=== PATIENT | male | born 1950 | race Caucasian/White ===

== ENCOUNTER 2017-01-21 14:40 | Emergency (ER) | payer MEDICARE, OTHER ==
[2017-01-21] MEDS ORDERED: Sodium Chloride 0.9% 10 ML Syringe FLUSH PRN (15:37)
[2017-01-21] MEDS ORDERED: Ondansetron 4 MG/2 ML SDV IVPUSH ONE (15:39)
[2017-01-21] MEDS ORDERED: HYDROmorphone 1 MG/ML Syringe IVPUSH ONE (15:39)
[2017-01-21] MEDS ORDERED: Sodium Chloride 0.9% 1,000 ML IV SCH ×2 (15:45→18:00)
--- NOTE | 2017-01-21 16:14 | EDM.PDOC ---
ED HPI GENERAL MEDICAL PROBLEM - General Chief Complaint: Flank Pain Stated Complaint: L BACK PAIN Time Seen by Provider: 01/21/17 15:15 Source of Information: Reports: Patient History Limitations: Reports: No Limitations - History of Present Illness INITIAL COMMENTS - FREE TEXT/NARRATIVE: Patient presents today with complaints of acute left sided flank pain with radiation to left groin area. Onset: Today Left Flank Pain Score (Numeric/FACES): 3 - Related Data Allergies Allergy/AdvReac Type Severity Reaction Status Date / Time enteric coted med Allergy Swelling Uncoded 01/21/17 15:10 Home Meds: Home Meds Carvedilol [Coreg] 25 mg PO BID 02/06/15 [History] Hydrochlorothiazide 25 mg PO DAILY 02/06/15 [History] Levothyroxine 75 mcg PO ACBREAKFAST 02/06/15 [History] Lisinopril 20 mg PO BID 02/06/15 [History] Spironolactone [Aldactone] 12.5 mg PO BID 02/06/15 [History] Terazosin [Hytrin] 5 mg PO BEDTIME 02/06/15 [History] Aspirin 81 mg PO DAILY 01/21/17 [History] Past Medical History Other HEENT History: hypothyroidism Cardiovascular History: Reports: Other (See Below) Other Cardiovascular History: cardiomegaly Other Gastrointestinal History: small intestine puncture Endocrine/Metabolic History: Reports: Hypothyroidism Oncologic (Cancer) History: Reports: Prostate Other Dermatologic History: lymes disease, valley fever - Past Surgical History GI Surgical History: Reports: Cholecystectomy Male Surgical History: Reports: Renal Calculus Musculoskeletal Surgical History: Reports: Arthroscopic Knee, Shoulder Surgery Social & Family History - Tobacco Use Smoking Status *Q: Never Smoker Second Hand Smoke Exposure: No - Caffeine Use Caffeine Use: Reports: Coffee - Alcohol Use Days Per Week of Alcohol Use: 7 Number of Drinks Per Day: 1 Total Drinks Per Week: 7 - Recreational Drug Use Recreational Drug Use: No ED ROS GENERAL - Review of Systems Review Of Systems: See Below Constitutional: Denies: Fever, Chills, Malaise, Weakness, Diaphoresis HEENT: Reports: No Symptoms Respiratory: Denies: Shortness of Breath, Wheezing, Cough, Sputum Cardiovascular: Denies: Chest Pain, Blood Pressure Problem, Dyspnea on Exertion , Edema, Lightheadedness, Palpitations, Syncope Endocrine: Reports: No Symptoms GI/Abdominal: Reports: Nausea, Other (He complains of pain to left flank radiating to left groin. ). Denies: Black Stool, Bloody Stool, Constipation, Diarrhea, Decreased Appetite, Difficulty Swallowing, Distension, Hematemesis, Hematochezia, Vomiting : Reports: Flank Pain. Denies: Dysuria, Frequency, Hematuria, Incontinence, Urgency, Urinary Retention Musculoskeletal: Reports: No Symptoms Skin: Denies: Cyanosis, Jaundice, Pallor, Diaphoresis, Bruising, Pruritis, Rash , Erythema, Wound, Lesions Neurological: Reports: No Symptoms Psychiatric: Reports: No Symptoms Hematologic/Lymphatic: Reports: No Symptoms Immunologic: Reports: No Symptoms ED EXAM, RENAL/ - Physical Exam Exam: See Below Exam Limited By: No Limitations General Appearance: Alert, WD/WN, No Apparent Distress Eye Exam: Bilateral Eye: Normal Inspection, PERRL Ears: Normal External Exam, Normal Canal, Hearing Grossly Normal, Normal TMs Nose: Normal Inspection, Normal Mucosa, No Blood Throat/Mouth: Normal Inspection, Normal Lips, Normal Teeth, Normal Gums, Normal Oropharynx, Normal Voice, No Airway Compromise Head: Atraumatic, Normocephalic Neck: Normal Inspection, Supple, Non-Tender, Full Range of Motion Respiratory/Chest: No Respiratory Distress, Lungs Clear, Normal Breath Sounds, No Accessory Muscle Use, Chest Non-Tender Cardiovascular: Normal Peripheral Pulses, Regular Rate, Rhythm, No Edema, No Gallop, No Murmur, No Rub GI/Abdominal: Normal Bowel Sounds, Soft, Non-Tender, No Distention, No Mass Back Exam: Full Range of Motion, CVA Tenderness (L). No: CVA Tenderness (R), Decreased Range of Motion, Muscle Spasm, Paraspinal Tenderness, Vertebral Tenderness Extremities: Normal Inspection, Normal Range of Motion, Non-Tender, No Pedal Edema, Normal Capillary Refill Neurological: Alert, Oriented, CN II-XII Intact, Normal Cognition, Normal Gait, Normal Reflexes, No Motor/Sensory Deficits Psychiatric: Normal Affect, Normal Mood Skin Exam: Warm, Dry, Intact, Normal Color, No Rash Lymphatic: No Adenopathy Course - Vital Signs Last Recorded V/S: Last Vital Signs Temp 36.0 C 01/21/17 15:11 Pulse 54 L 01/21/17 18:04 Resp 16 01/21/17 18:04 BP 114/57 L 01/21/17 18:04 Pulse Ox 96 01/21/17 18:04 - Orders/Labs/Meds Orders: Active Orders 24 hr Category Date Time Status Kidney Stone Protocol [CT] Stat Exams 01/21/17 15:37 Taken Saline Lock Insert [OM.PC] Routine Oth 01/21/17 15:37 Ordered Labs: Laboratory Tests 01/21/17 01/21/17 01/21/17 Range/Units 15:48 15:48 17:55 WBC 4.9 (4.5-11.0) K/uL RBC 4.03 L (4.30-5.90) M/uL Hgb 12.5 (12.0-15.0) g/dL Hct 37.6 L (40.0-54.0) % MCV 93 (80-98) fL MCH 31 (27-31) pg MCHC 33 (32-36) % Plt Count 166 (150-400) K/uL Neut % (Auto) 69 H (36-66) % Lymph % (Auto) 16 L (24-44) % [place] % (Auto) 10 H (2-6) % Eos % (Auto) 5 H (2-4) % Baso % (Auto) 0 (0-1) % Sodium 141 (140-148) mmol/L Potassium 4.4 (3.6-5.2) mmol/L Chloride 104 (100-108) mmol/L Carbon Dioxide 28 (21-32) mmol/L Anion Gap 9.2 (5.0-14.0) mmol/L BUN 31 H (7-18) mg/dL Creatinine 1.4 H (0.8-1.3) mg/dL Est Cr Clr Drug Dosing 52.14 mL/min Estimated GFR (MDRD) 50 L (>60) Glucose 129 H (74-106) mg/dL Calcium 8.9 (8.5-10.1) mg/dL Total Bilirubin 0.4 (0.2-1.0) mg/dL AST 19 (15-37) U/L ALT 25 (12-78) U/L Alkaline Phosphatase 48 (46-116) U/L Total Protein 7.0 (6.4-8.2) g/dL Albumin 4.0 (3.4-5.0) g/dL Globulin 3.0 (2.3-3.5) g/dL Albumin/Globulin Ratio 1.3 (1.2-2.2) Urine Color Yellow Urine Appearance Clear Urine pH 5.0 (4.5-8.0) Ur Specific [place] 1.020 (1.008-1.030) Urine Protein Negative (NEGATIVE) mg/dL Urine Glucose (UA) Normal (NEGATIVE) mg/dL Urine Ketones Negative (NEGATIVE) mg/dL Urine Occult Blood Negative (NEGATIVE) Urine Nitrite Negative (NEGAITVE) Urine Bilirubin Negative (NEGATIVE) Urine Urobilinogen Normal (NORMAL) mg/dL Ur Leukocyte Esterase Negative (NEGATIVE) Urine RBC 0-5 (0-5) Urine WBC Not seen (0-5) Ur Epithelial Cells Rare Amorphous Sediment Not seen Urine Bacteria Rare Urine Mucus Not seen Meds: Medications Discontinued Medications Generic Name Dose Route Start Last Admin Trade Name Freq PRN Reason Stop Dose Admin Hydromorphone HCl 1 mg 01/21/17 15:39 01/21/17 15:49 Dilaudid IVPUSH 01/21/17 15:40 1 mg ONETIME ONE Administration Sodium Chloride 1,000 mls @ 500 mls/hr 01/21/17 15:45 01/21/17 15:53 Normal Saline IV 500 mls/hr ASDIRECTED CELINE Administration Sodium Chloride 1,000 mls @ 500 mls/hr 01/21/17 18:00 Normal Saline IV ASDIRECTED CELINE Ondansetron HCl 4 mg 01/21/17 15:39 01/21/17 15:49 Zofran IVPUSH 01/21/17 15:40 4 mg ONETIME ONE Administration Sodium Chloride 10 ml 01/21/17 15:37 01/21/17 15:52 Saline Flush FLUSH 10 ml ASDIRECTED PRN Administration Keep Vein Open - Re-Assessments/Exams Free Text/Narrative Re-Assessment/Exam: 01/21/17 16:13 Patient reports pain is now 2/10. 01/21/17 17:03 Patient resting, pain continues to be controlled at this time. CT report pending. Departure - Departure Time of Disposition: 18:31 Disposition: DC/Tfer W/I Hosp To Swing 61 Condition: fair Clinical Impression: Acute left flank pain - Discharge Information Instructions: Flank Pain, [id number] Referrals: Maritza Jeffers NP [Primary Care Provider] - Forms: ED Department Discharge Additional Instructions: The CT scan of your abdomen showed punctate bilateral renal calculi. No hydronephrosis or hydroureter. Normal urinary bladder. Keep yourself hydrated. You can take ibuprofen 800mg by mouth three times a day as needed for pain. You can also take hydrocodone as directed for pain. You can take ondansetron as directed for nausea. Follow up with your primary care provider for further care and management as well as referral to urology and/or stone clinic. Return at any time for worsening of symptoms or concerns. - My Orders Last 24 Hours: My Active Orders 01/21/17 15:37 Kidney Stone Protocol [CT] Stat Saline Lock Insert [OM.PC] Routine - Assessment/Plan Last 24 Hours: My Active Orders 01/21/17 15:37 Kidney Stone Protocol [CT] Stat Saline Lock Insert [OM.PC] Routine Assessment:: Left flank pain Punctate bilateral renal calculi. No hydronephrosis or hydroureter. Normal urinary bladder. Plan: The CT scan of abdomen showed punctate bilateral renal calculi. No hydronephrosis or hydroureter. Normal urinary bladder. Patient instructed to stay hydrated. He can take ibuprofen 800mg by mouth three times a day as needed for pain. He can also take hydrocodone as directed for pain. He can take ondansetron as directed for nausea. Follow up with primary care provider for further care and management as well as referral to urology and/or stone clinic. He was instructed to return at any time for worsening of symptoms or concerns.
[2017-01-21 18:05] VITALS: BP 114/57
== END 2017-01-21 18:48 | disposition swing bed (61) ==
LOC: JP.ED 14:40
DX: R10.9 Unspecified abdominal pain (principal); E03.9 Hypothyroidism, unspecified; Z85.46 Personal history of malignant neoplasm of prostate; Z90.49 Acquired absence of other specified parts of digestive tract; Z98.890 Other specified postprocedural states; Z87.442 Personal history of urinary calculi; Z79.82 Long term (current) use of aspirin; Z79.899 Other long term (current) drug therapy; Z88.8 Allergy status to other drugs, medicaments and biological substances
CPT/HCPCS: 36415; 74176; 80053; 81001; 85025; 96361; 96374; 96375; 99285; J1170; J2405; J7040; J7050; 99284

== ENCOUNTER 2020-06-24 07:23 | Emergency (ER) | payer MEDICARE, OTHER ==
[2020-06-24] MEDS ORDERED: Albuterol 8 GM Inhaler INH ONE ×2 (08:19→08:21)
--- NOTE | 2020-06-24 08:19 | EDM.PDOC ---
ED HPI GENERAL MEDICAL PROBLEM - General Chief Complaint: Respiratory Problem Stated Complaint: COUGHING Time Seen by Provider: 06/24/20 08:09 Source of Information: Reports: Patient History Limitations: Reports: No Limitations - History of Present Illness INITIAL COMMENTS - FREE TEXT/NARRATIVE: pt arrived sob and coughing. He has been more sob. This started in the nite. He worked outside yesterday and he had a good day. He also has diarrhea. He has not vomited. - Related Data Allergies Allergy/AdvReac Type Severity Reaction Status Date / Time enteric coted med Allergy Swelling Uncoded 01/21/17 15:10 Home Meds: Home Meds Carvedilol [Coreg] 25 mg PO BID 02/06/15 [History] Hydrochlorothiazide 12.5 mg PO DAILY 02/06/15 [History] Levothyroxine 75 mcg PO ACBREAKFAST 02/06/15 [History] Lisinopril 20 mg PO BID 02/06/15 [History] Spironolactone [Aldactone] 12.5 mg PO DAILY 02/06/15 [History] Aspirin 162 mg PO DAILY 01/21/17 [History] Past Medical History Other HEENT History: hypothyroidism Cardiovascular History: Reports: Other (See Below) Other Cardiovascular History: cardiomegaly Respiratory History: Reports: Asthma Other Gastrointestinal History: small intestine puncture after gall bladder removal Musculoskeletal History: Reports: Other (See Below) Other Musculoskeletal History: vincenzo schlatters diasesa. Endocrine/Metabolic History: Reports: Hypothyroidism Oncologic (Cancer) History: Reports: Prostate Other Dermatologic History: lymes disease, valley fever - Past Surgical History GI Surgical History: Reports: Cholecystectomy Male Surgical History: Reports: Prostatectomy, Renal Calculus Musculoskeletal Surgical History: Reports: Arthroscopic Knee, Shoulder Surgery Social & Family History - Family History Family Medical History: Noncontributory - Tobacco Use Tobacco Use Status *Q: Never Tobacco User Second Hand Smoke Exposure: No - Caffeine Use Caffeine Use: Reports: Coffee - Alcohol Use Date of Last Drink: 06/21/20 - Recreational Drug Use Recreational Drug Use: No ED ROS GENERAL - Review of Systems Review Of Systems: See Below Constitutional: Reports: Chills, Malaise, Weakness HEENT: Reports: No Symptoms, Other ( tight in the throat) Respiratory: Reports: Shortness of Breath, Wheezing Cardiovascular: Reports: No Symptoms Endocrine: Reports: No Symptoms GI/Abdominal: Reports: No Symptoms : Reports: No Symptoms Musculoskeletal: Reports: No Symptoms Skin: Reports: No Symptoms Neurological: Reports: No Symptoms ED EXAM, GENERAL - Physical Exam Exam: See Below Free Text/Narrative:: ptarrived with sob and wheezing. He was working in the yard yesterday. General Appearance: Alert, Anxious Course - Vital Signs Last Recorded V/S: Last Vital Signs Temp 37.8 C 06/24/20 08:51 Pulse 99 06/24/20 12:50 Resp 22 H 06/24/20 08:51 BP 119/55 L 06/24/20 12:50 Pulse Ox 95 06/24/20 12:50 - Orders/Labs/Meds Labs: Laboratory Tests 06/24/20 06/24/20 06/24/20 Range/Units 08:20 08:29 09:03 WBC 9.6 (4.5-11.0) K/uL RBC 4.35 (4.30-5.90) M/uL Hgb 12.9 (12.0-15.0) g/dL Hct 42.0 (40.0-54.0) % MCV 97 (80-98) fL MCH 30 (27-31) pg MCHC 31 L (32-36) % Plt Count 155 (150-400) K/uL Neut % (Auto) 92 H (36-66) % Lymph % (Auto) 4 L (24-44) % [place] % (Auto) 3 (2-6) % Eos % (Auto) 1 L (2-4) % Baso % (Auto) 0 (0-1) % D-Dimer, Quantitative (0.0-500.0) ng/mL Sodium 129 L (140-148) mmol/L Potassium 3.9 (3.6-5.2) mmol/L Chloride 100 (100-108) mmol/L Carbon Dioxide 25 (21-32) mmol/L Anion Gap 7.9 (5.0-14.0) mmol/L BUN 29 H (7-18) mg/dL Creatinine 1.6 H (0.8-1.3) mg/dL Est Cr Clr Drug Dosing 44.45 mL/min Estimated GFR (MDRD) 43 L (>60) Glucose 86 (74-106) mg/dL Calcium 8.8 (8.5-10.1) mg/dL Total Bilirubin 0.8 D (0.2-1.0) mg/dL AST 31 (15-37) U/L ALT 47 D (12-78) U/L Alkaline Phosphatase 40 L (46-116) U/L Total Protein 6.3 L (6.4-8.2) g/dL Albumin 3.4 (3.4-5.0) g/dL Globulin 2.9 (2.3-3.5) g/dL Albumin/Globulin Ratio 1.2 (1.2-2.2) Urine Color Yellow (YELLOW) Urine Appearance Clear (CLEAR) Urine pH 5.5 (5.0-8.0) Ur Specific [place] 1.025 (1.008-1.030) Urine Protein Negative (NEGATIVE) mg/dL Urine Glucose (UA) Negative (NEGATIVE) mg/dL Urine Ketones Negative (NEGATIVE) mg/dL Urine Occult Blood Trace-lysed H (NEGATIVE) Urine Nitrite Negative (NEGATIVE) Urine Bilirubin Negative (NEGATIVE) Urine Urobilinogen 0.2 (0.2-1.0) EU/dL Ur Leukocyte Esterase Negative (NEGATIVE) Urine RBC 0-5 (0-5) Urine WBC Not seen (0-5) Ur Epithelial Cells Not seen Amorphous Sediment Not seen Urine Bacteria Not seen Urine Mucus Not seen SARS-CoV-2 RNA (NOHEMY) (NEGATIVE) 06/24/20 06/24/20 Range/Units 09:35 09:54 WBC (4.5-11.0) K/uL RBC (4.30-5.90) M/uL Hgb (12.0-15.0) g/dL Hct (40.0-54.0) % MCV (80-98) fL MCH (27-31) pg MCHC (32-36) % Plt Count (150-400) K/uL Neut % (Auto) (36-66) % Lymph % (Auto) (24-44) % [place] % (Auto) (2-6) % Eos % (Auto) (2-4) % Baso % (Auto) (0-1) % D-Dimer, Quantitative 2826.15 H (0.0-500.0) ng/mL Sodium (140-148) mmol/L Potassium (3.6-5.2) mmol/L Chloride (100-108) mmol/L Carbon Dioxide (21-32) mmol/L Anion Gap (5.0-14.0) mmol/L BUN (7-18) mg/dL Creatinine (0.8-1.3) mg/dL Est Cr Clr Drug Dosing mL/min Estimated GFR (MDRD) (>60) Glucose (74-106) mg/dL Calcium (8.5-10.1) mg/dL Total Bilirubin (0.2-1.0) mg/dL AST (15-37) U/L ALT (12-78) U/L Alkaline Phosphatase (46-116) U/L Total Protein (6.4-8.2) g/dL Albumin (3.4-5.0) g/dL Globulin (2.3-3.5) g/dL Albumin/Globulin Ratio (1.2-2.2) Urine Color (YELLOW) Urine Appearance (CLEAR) Urine pH (5.0-8.0) Ur Specific [place] (1.008-1.030) Urine Protein (NEGATIVE) mg/dL Urine Glucose (UA) (NEGATIVE) mg/dL Urine Ketones (NEGATIVE) mg/dL Urine Occult Blood (NEGATIVE) Urine Nitrite (NEGATIVE) Urine Bilirubin (NEGATIVE) Urine Urobilinogen (0.2-1.0) EU/dL Ur Leukocyte Esterase (NEGATIVE) Urine RBC (0-5) Urine WBC (0-5) Ur Epithelial Cells Amorphous Sediment Urine Bacteria Urine Mucus SARS-CoV-2 RNA (NOHEMY) Negative (NEGATIVE) Meds: Medications Discontinued Medications Generic Name Dose Route Start Last Admin Trade Name Freq PRN Reason Stop Dose Admin Albuterol 2 gm 06/24/20 08:19 06/24/20 08:44 Ventolin Hfa INH 06/24/20 08:20 2 puff ONETIME ONE Administration Albuterol 2 gm 06/24/20 08:21 Ventolin Hfa INH 06/24/20 08:22 ONETIME ONE Sodium Chloride 1,000 mls @ 999 mls/hr 06/24/20 08:30 06/24/20 08:45 Normal Saline IV 999 mls/hr ASDIRECTED CELINE Administration Sodium Chloride 1,000 mls @ 999 mls/hr 06/24/20 11:15 06/24/20 11:15 Normal Saline IV 999 mls/hr ASDIRECTED CELINE Administration Sodium Chloride 95 mls @ 4 mls/sec 06/24/20 11:30 06/24/20 11:27 Normal Saline IV 4 mls/sec ASDIRECTED CELINE Administration Ceftriaxone Sodium 1 gm/ 50 mls @ 100 mls/hr 06/24/20 12:06 06/24/20 12:20 Sodium Chloride IV 06/24/20 12:35 100 mls/hr ONETIME ONE Administration Iopamidol 100 ml 06/24/20 11:18 06/24/20 11:29 Isovue-370 (76%) IV 06/24/20 11:19 100 ml . DIRECTED ONE Administration Methylprednisolone Sodium Succinate 125 mg 06/24/20 09:01 06/24/20 09:11 Solu-Medrol IVPUSH 06/24/20 09:02 125 mg ONETIME ONE Administration - Re-Assessments/Exams Free Text/Narrative Re-Assessment/Exam: 06/24/20 10:46 pt was found to be Covid neg. His chest xray is good with no infiltrate. His wbc was not elevated. He is raising some sputum out of his chest. His has great oxgenation at this point and is comfortable with his breathing. 06/24/20 12:04 Pt had a high ddmimer return, greater than 2000. A ngio of the chest was obtained per Dr Garza, fluids were run and a reduced dose of dye was used. He did not have clots but he was found to have a small infiltrate looking like a small pneumonia in the rt lower lung area. Departure - Departure Time of Disposition: 10:48 Disposition: Home, Self-Care 01 Condition: Fair Clinical Impression: Bronchospasm, SOB (shortness of breath), Right lower lobe pneumonia - Discharge Information Instructions: Bronchospasm, Adult, [id number] Referrals: PCP,None [Primary Care Provider] - Forms: ED Department Discharge Care Plan Goals: avoid alot of activity in the yard today, push fluids, albuterol inhaler 2 puffs tid for the next 2 days and then use prn. zithromax 500mg now and 250 daily for 5 days. appt with Micky Zurita in 5 days. Sepsis Event Note (ED) - Evaluation Sepsis Screening Result: No Definite Risk
[2020-06-24] MEDS ORDERED: Sodium Chloride 0.9% 1,000 ML IV SCH ×2 (08:30→11:15)
[2020-06-24] MEDS ORDERED: methylPREDNISolone Sodium Succinate 125 MG/2 ML SDV IVPUSH ONE (09:01)
--- NOTE | 2020-06-24 09:13 | CR ---
CHEST: 2 view CLINICAL HISTORY:SOB COMPARISON:2011 FINDINGS: The heart size, pulmonary vascularity and hilar structures are normal. No infiltrate effusion or pneumothorax is seen. There are atherosclerotic changes in the aorta. IMPRESSION: No acute cardiopulmonary process.
[2020-06-24] MEDS ORDERED: Iopamidol 755 Mg/ML 100 ML Bottle IV ONE (11:18)
--- NOTE | 2020-06-24 11:50 | CT ---
Ang Chest CLINICAL HISTORY: Chest pain, shortness of breath TECHNIQUE: Thin section axial contiguous tomographic sections were taken through the chest after bolus IV iodinated contrast administration. Coronal and sagittal images were reconstructed. Auto dosage reduction and iterative reconstruction techniques employed. FINDINGS: There is moderate infiltrate in the medial and posterior basal segments of the right lower lobe. No mediastinal mass or lymphadenopathy is seen. No definite intraluminal filling defects are identified in the pulmonary arteries. There is some mild irregularity in the pulmonary arteries as they enter the area of infiltrate in the medial right lower lobe. Aorta is free of aneurysm or dissection. IMPRESSION: Right lower lobe pneumonic infiltrate. Pulmonary infarct is not excluded but felt less likely No definite evidence of pulmonary emboli
[2020-06-24] MEDS ORDERED: cefTRIAXone 1 GM in Sodium Chloride 0.9% 50 ML IV ONE (12:06)
[2020-06-24 12:58] VITALS: BP 119/55; PULSE 99
== END 2020-06-24 13:01 | disposition home or self-care (01) ==
LOC: JP.ED 07:23
DX: J18.9 Pneumonia, unspecified organism (principal); J98.01 Acute bronchospasm; E03.9 Hypothyroidism, unspecified; Z20.828 Contact with and (suspected) exposure to other viral communicable diseases; Z88.8 Allergy status to other drugs, medicaments and biological substances; Z79.82 Long term (current) use of aspirin; Z79.899 Other long term (current) drug therapy
CPT/HCPCS: 36415; 71046; 71275; 80053; 81001; 85025; 85379; 94640; 96365; 96375; 99285; A9270; J0696; J2930; J7030; J7050; Q9967; U0002; 99284

== ENCOUNTER 2020-07-06 11:53 | Inpatient (IN) | payer MEDICARE, OTHER ==
[2020-07-06] MEDS ORDERED: Lactated Ringers 1,000 ML IV ONE (12:44)
[2020-07-06] MEDS ORDERED: Acetaminophen 500 MG Tab PO ONE (12:47)
--- NOTE | 2020-07-06 12:52 | EDM.PDOC ---
ED HPI GENERAL MEDICAL PROBLEM - General Chief Complaint: Respiratory Problem Stated Complaint: FROM CLINIC SHORTNESS OF BREATH Time Seen by Provider: 07/06/20 12:35 Source of Information: Reports: Patient, Old Records, RN History Limitations: Reports: No Limitations - History of Present Illness INITIAL COMMENTS - FREE TEXT/NARRATIVE: 70 yo male was seen here on 06/24 and was found to have an early pneumonia. He was given a Z-pack and states that he never improved and in fact has gradually worsened since its onset. Has some transient relief with albuterol. Is running a fever. Was Covid negative on 06/24/2020. Has a pHx of DVT's. 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: Other (see below) (See HPI) - Related Data Allergies Allergy/AdvReac Type Severity Reaction Status Date / Time enteric coted med Allergy Swelling Uncoded 07/06/20 12:46 Home Meds: Home Meds Carvedilol [Coreg] 25 mg PO BID 02/06/15 [History] Hydrochlorothiazide 12.5 mg PO DAILY 02/06/15 [History] Levothyroxine 75 mcg PO ACBREAKFAST 02/06/15 [History] Lisinopril 20 mg PO BID 02/06/15 [History] Spironolactone [Aldactone] 12.5 mg PO DAILY 02/06/15 [History] Aspirin 162 mg PO DAILY 01/21/17 [History] Albuterol [Ventolin HFA] 1 puff INH ASDIRECTED 07/06/20 [History] Past Medical History Other HEENT History: hypothyroidism Cardiovascular History: Reports: Other (See Below) Other Cardiovascular History: cardiomegaly Respiratory History: Reports: Asthma Other Gastrointestinal History: small intestine puncture after gall bladder removal Musculoskeletal History: Reports: Other (See Below) Other Musculoskeletal History: vincenzo schlatters diasesa. Endocrine/Metabolic History: Reports: Hypothyroidism Oncologic (Cancer) History: Reports: Prostate Other Dermatologic History: lymes disease, valley fever - Past Surgical History GI Surgical History: Reports: Cholecystectomy Male Surgical History: Reports: Prostatectomy, Renal Calculus Musculoskeletal Surgical History: Reports: Arthroscopic Knee, Shoulder Surgery Social & Family History - Family History Family Medical History: No Pertinent Family History - Caffeine Use Caffeine Use: Reports: Coffee ED ROS GENERAL - Review of Systems Review Of Systems: See Below Constitutional: Reports: Fever, Chills, Malaise, Decreased Appetite HEENT: Reports: No Symptoms Respiratory: Reports: Shortness of Breath, Cough. Denies: Pleuritic Chest Pain, Hemoptysis Cardiovascular: Reports: No Symptoms Endocrine: Reports: No Symptoms GI/Abdominal: Reports: Anorexia : Reports: No Symptoms Musculoskeletal: Reports: No Symptoms Skin: Reports: No Symptoms Neurological: Reports: No Symptoms ED EXAM, GENERAL - Physical Exam Exam: See Below Exam Limited By: No Limitations General Appearance: Alert, WD/WN, Mild Distress Eye Exam: Bilateral Eye: Normal Inspection Ears: Normal External Exam, Normal Canal, Hearing Grossly Normal, Normal TMs Ear Exam: Bilateral Ear: Auricle Normal, Canal Normal, TM normal Nose: Normal Inspection, No Blood Throat/Mouth: Normal Lips, Normal Oropharynx, Normal Voice, No Airway Compromise, Other (slightly dry oral mucosa) Neck: Normal Inspection Respiratory/Chest: Rhonchi, Other (mild tachypnea) Cardiovascular: Regular Rate, Rhythm, No Edema, Tachycardia GI/Abdominal: Normal Bowel Sounds, Soft, Non-Tender, No Distention Extremities: Normal Range of Motion, Pedal Edema. No: Non-Tender, No Pedal Edema Neurological: Alert, Oriented, CN II-XII Intact, Normal Cognition, No Motor/Sensory Deficits Psychiatric: Normal Affect, Normal Mood Skin Exam: Warm, Dry, Intact, No Rash, Other (hemosiderin staining of both legs below the knees. ) Course - Vital Signs Text/Narrative:: Dr. Childers called @ 1530h Last Recorded V/S: Last Vital Signs Temp 37.1 C 07/06/20 15:22 Pulse 84 07/06/20 15:22 Resp 22 H 07/06/20 15:22 BP 97/45 L 07/06/20 15:22 Pulse Ox 97 07/06/20 15:22 - Orders/Labs/Meds Orders: Active Orders 24 hr Category Date Time Status Oxygen Therapy Adult [Oxygen Therapy, ED] [RC] Care 07/06/20 12:46 Active ASDIRECTED CULTURE BLOOD [BC] Stat Lab 07/06/20 12:50 Received CULTURE BLOOD [BC] Stat Lab 07/06/20 13:00 Received UA W/MICROSCOPIC [URIN] Stat Lab 07/06/20 12:45 Ordered Sodium Chloride 0.9% [Normal Saline] 100 ml Med 07/06/20 14:45 Active IV ASDIRECTED Medication Orders Sodium Chloride (Normal Saline) 100 mls @ 3.5 mls/sec IV ASDIRECTED CELINE Stop: 07/06/20 18:00 Last Admin: 07/06/20 15:06 Dose: 4 mls/sec Documented by: CARLA Labs: Laboratory Tests 07/06/20 07/06/20 07/06/20 Range/Units 12:31 13:00 13:03 WBC 9.2 (4.5-11.0) K/uL RBC 4.43 (4.30-5.90) M/uL Hgb 12.9 (12.0-15.0) g/dL Hct 41.3 (40.0-54.0) % MCV 93 (80-98) fL MCH 29 (27-31) pg MCHC 31 L (32-36) % Plt Count 201 (150-400) K/uL D-Dimer, Quantitative 1460.39 H (0.0-500.0) ng/mL Sodium (140-148) mmol/L Potassium (3.6-5.2) mmol/L Chloride (100-108) mmol/L Carbon Dioxide (21-32) mmol/L Anion Gap (5.0-14.0) mmol/L BUN (7-18) mg/dL Creatinine (0.8-1.3) mg/dL Est Cr Clr Drug Dosing mL/min Estimated GFR (MDRD) (>60) Glucose (74-106) mg/dL Lactic Acid (0.4-2.0) mmol/L Calcium (8.5-10.1) mg/dL Lactate Dehydrogenase 368 H (85-227) U/L SARS-CoV-2 RNA (NOHEMY) (NEGATIVE) 07/06/20 07/06/20 07/06/20 Range/Units 13:03 13:03 13:05 WBC (4.5-11.0) K/uL RBC (4.30-5.90) M/uL Hgb (12.0-15.0) g/dL Hct (40.0-54.0) % MCV (80-98) fL MCH (27-31) pg MCHC (32-36) % Plt Count (150-400) K/uL D-Dimer, Quantitative (0.0-500.0) ng/mL Sodium 130 L (140-148) mmol/L Potassium 5.0 (3.6-5.2) mmol/L Chloride 94 L (100-108) mmol/L Carbon Dioxide 26 (21-32) mmol/L Anion Gap 15.0 H (5.0-14.0) mmol/L BUN 28 H (7-18) mg/dL Creatinine 1.7 H (0.8-1.3) mg/dL Est Cr Clr Drug Dosing 41.83 mL/min Estimated GFR (MDRD) 40 L (>60) Glucose 102 (74-106) mg/dL Lactic Acid 1.4 (0.4-2.0) mmol/L Calcium 9.3 (8.5-10.1) mg/dL Lactate Dehydrogenase (85-227) U/L SARS-CoV-2 RNA (NOHEMY) Positive H (NEGATIVE) Meds: Medications Generic Name Dose Route Start Last Admin Trade Name Freq PRN Reason Stop Dose Admin Sodium Chloride 100 mls @ 3.5 mls/sec 07/06/20 14:45 07/06/20 15:06 Normal Saline IV 07/06/20 18:00 4 mls/sec ASDIRECTED CELINE Administration Discontinued Medications Generic Name Dose Route Start Last Admin Trade Name Freq PRN Reason Stop Dose Admin Acetaminophen 1,000 mg 07/06/20 12:47 07/06/20 13:34 Tylenol Extra Strength PO 07/06/20 12:48 1,000 mg ONETIME ONE Administration Lactated Ringer's 1,000 mls @ 1,000 mls/hr 07/06/20 12:44 07/06/20 13:32 Ringers, Lactated IV 07/06/20 13:43 1,000 mls/hr BOLUS ONE Administration Ceftriaxone Sodium 1 gm/ 50 mls @ 100 mls/hr 07/06/20 14:45 07/06/20 15:21 Sodium Chloride IV 07/06/20 15:14 100 mls/hr ONETIME ONE Administration Iopamidol 100 ml 07/06/20 14:45 07/06/20 15:06 Isovue-370 (76%) IV 07/06/20 14:46 100 ml . DIRECTED CELINE Administration Sodium Chloride 10 ml 07/06/20 14:43 07/06/20 15:06 Saline Flush FLUSH 07/06/20 14:44 10 ml ONETIME ONE Administration - Radiology Interpretation Free Text/Narrative:: CXR-bilateral pneumonia CTA chest-neg PE Departure - Departure Time of Disposition: 15:45 Disposition: Admitted As Inpatient 64 Condition: Fair Clinical Impression: Hypoxemia, COVID-19 Lower lobe pneumonia Qualifiers: Pneumonia type: due to unspecified organism Laterality: bilateral Qualified Code(s): J18.9 - Pneumonia, unspecified organism - Discharge Information Referrals: PCP,None [Primary Care Provider] - Forms: ED Department Discharge Sepsis Event Note (ED) - Evaluation Sepsis Screening Result: Possible Sepsis Risk - Focused Exam Vital Signs: Vital Signs Temp Pulse Resp BP Pulse Ox Pulse Ox 07/06/20 15:22 37.1 C 84 22 H 97/45 L 97 07/06/20 14:37 38.1 C 92 26 H 125/63 94 L 07/06/20 12:49 95 07/06/20 12:43 38.6 C H 82 30 H 126/64 88 L - My Orders Last 24 Hours: My Active Orders 07/06/20 12:45 UA W/MICROSCOPIC [URIN] Stat 07/06/20 12:46 Oxygen Therapy Adult [Oxygen Therapy, ED] [] ASDIRECTED 07/06/20 12:50 CULTURE BLOOD [BC] Stat 07/06/20 13:00 CULTURE BLOOD [BC] Stat 07/06/20 14:45 Sodium Chloride 0.9% [Normal Saline] 100 ml IV ASDIRECTED - Assessment/Plan Last 24 Hours: My Active Orders 07/06/20 12:45 UA W/MICROSCOPIC [URIN] Stat 07/06/20 12:46 Oxygen Therapy Adult [Oxygen Therapy, ED] [] ASDIRECTED 07/06/20 12:50 CULTURE BLOOD [BC] Stat 07/06/20 13:00 CULTURE BLOOD [BC] Stat 07/06/20 14:45 Sodium Chloride 0.9% [Normal Saline] 100 ml IV ASDIRECTED
--- NOTE | 2020-07-06 14:00 | CR ---
CHEST: 2 view CLINICAL HISTORY:Fever, cough, shortness of breath COMPARISON:06/24/2020 FINDINGS: There is been interval development of bilateral pulmonary infiltrates most notable in the right upper lobe. Heart size and pulmonary vascularity are normal. There are atherosclerotic changes in the aorta.. There are no effusions. Impression: Interval development of bilateral pneumonic infiltrates.
[2020-07-06] MEDS ORDERED: cefTRIAXone 1 GM in Sodium Chloride 0.9% 50 ML IV ONE ×2 (14:30→14:45)
[2020-07-06] MEDS ORDERED: Sodium Chloride 0.9% 10 ML Syringe FLUSH ONE (14:43)
[2020-07-06] MEDS ORDERED: Sodium Chloride 0.9% 100 ML IV SCH (14:45)
[2020-07-06] MEDS ORDERED: Iopamidol 755 Mg/ML 100 ML Bottle IV SCH (14:45)
--- NOTE | 2020-07-06 15:09 | CT ---
Ang Chest CLINICAL HISTORY: Elevated d-dimer, SOB, covid Positive TECHNIQUE: Thin section axial contiguous tomographic sections were taken through the chest after bolus IV iodinated contrast administration. Coronal and sagittal images were reconstructed. Auto dosage reduction and iterative reconstruction techniques employed. FINDINGS: There is patchy diffuse bilateral groundglass opacification in both the upper and lower lung chakraborty. There is some atelectasis and or consolidation in the right the medial basal segment no pulmonary mass is identified. No pulmonary mass is identified. Pulmonary arteries are free of filling defects. Aorta has some atheromatous change without aneurysm or dissection. No mediastinal mass or suspicious lymphadenopathy is identified. There are no pleural effusions. Scans in the upper abdomen show no mass or adenopathy. IMPRESSION: No evidence of pulmonary embolus Diffuse patchy bilateral groundglass opacifications suggesting pneumonitis. This would be consistent with the patient being Covid Positive.
[2020-07-06] MEDS ORDERED: Dexamethasone 2 MG Tab PO ONE (16:24)
--- NOTE | 2020-07-06 16:35 | PCM.HP.2 ---
H&P History of Present Illness - General Date of Service: 07/06/20 Admit Problem/Dx: Admission Diagnosis/Problem Admission Diagnosis/Problem Pneumonia Source of Information: Patient, Provider History Limitations: Reports: No Limitations - History of Present Illness Initial Comments - Free Text/Narative: CC: I just can't breathe HPI: Luis presents to the emergency room today with progressive cough, shortness of breath, weakness and fatigue. He has not felt well for the last 12 days. He was seen in the emergency room on June 24 and was diagnosed with right lower lung pneumonia and started on azithromycin. His Covid testing at that time was negative. Initially he started to feel better but then over the last 10 days or so his symptoms have slowly progressed. He reports mild intermittent headaches, off and on fevers at home as well as significant fatigue and anorexia. He has not been able to eat or drink much because of nausea and occasional vomiting. He feels short of breath with even minimal activity. He has paroxysms of coughing that take his breath away for several minutes. He does not report any chest pain or pleuritic chest pain. His cough seems to be worse at night when he lays down. He has tried some [id number] cough remedies without much improvement. His coughing and shortness of breath have steadily been getting worse over the past 4 days or so. He is not aware of any sick contacts and other than the trip to the emergency room 12 days ago has not really had any contact that he is aware of. His is not sick. He has not traveled. Work-up in the emergency room revealed fairly reassuring laboratory studies. COVID-19 testing was positive. The patient is hypoxic and requiring 2 L of supplemental oxygen. He is going to be admitted to the Covid unit for further management. - Related Data Allergies/Adverse Reactions: Allergies Allergy/AdvReac Type Severity Reaction Status Date / Time enteric coted med Allergy Swelling Uncoded 07/06/20 12:46 Home Medications: Home Meds Carvedilol [Coreg] 25 mg PO BID 02/06/15 [History] Hydrochlorothiazide 12.5 mg PO DAILY 02/06/15 [History] Levothyroxine 75 mcg PO ACBREAKFAST 02/06/15 [History] Lisinopril 20 mg PO BID 02/06/15 [History] Spironolactone [Aldactone] 12.5 mg PO DAILY 02/06/15 [History] Aspirin 162 mg PO DAILY 01/21/17 [History] Albuterol [Ventolin HFA] 1 puff INH ASDIRECTED 07/06/20 [History] Past Medical History Other HEENT History: hypothyroidism Cardiovascular History: Reports: Other (See Below) Other Cardiovascular History: cardiomegaly Respiratory History: Reports: Asthma Other Gastrointestinal History: small intestine puncture after gall bladder removal Musculoskeletal History: Reports: Other (See Below) Other Musculoskeletal History: vincenzo schlatters diasesa. Endocrine/Metabolic History: Reports: Hypothyroidism Oncologic (Cancer) History: Reports: Prostate Other Dermatologic History: lymes disease, valley fever - Past Surgical History GI Surgical History: Reports: Cholecystectomy Male Surgical History: Reports: Prostatectomy, Renal Calculus Musculoskeletal Surgical History: Reports: Arthroscopic Knee, Shoulder Surgery Social & Family History - Family History Family Medical History: No Pertinent Family History - Tobacco Use Tobacco Use Status *Q: Never Tobacco User - Caffeine Use Caffeine Use: Reports: Coffee - Alcohol Use Alcohol Use History: No - Recreational Drug Use Recreational Drug Use: No H&P Review of Systems - Review of Systems: Review Of Systems: See Below Free Text/Narrative: A complete 12 point review of systems was obtained. Pertinent positives and negatives are noted in the history of present illness. All other systems were reviewed and were negative except as noted. Exam - Exam Exam: See Below - Vital Signs Vital Signs: Last Vital Signs Temp 37.1 C 07/06/20 15:22 Pulse 84 07/06/20 15:22 Resp 22 H 07/06/20 15:22 BP 97/45 L 07/06/20 15:22 Pulse Ox 97 07/06/20 15:22 Weight: 124.738 kg - Exam Quality Assessment: Supplemental Oxygen General: Alert, Oriented, Cooperative. No: Mild Distress HEENT: Conjunctiva Clear. No: Mucosa Moist & New [place] (dry), Scleral Icterus Neck: Supple, Trachea Midline Lungs: Normal Respiratory Effort, Crackles (few right lung base) Cardiovascular: Regular Rate, Regular Rhythm. No: Systolic Murmur GI/Abdominal Exam: Normal Bowel Sounds, Soft, Non-Tender, No Distention Back Exam: Normal Inspection, Full Range of Motion Extremities: Pedal Edema (trace bilateral ankle edema). No: Increased Warmth Skin: Warm, Dry, Other (chronic venous stasis both lower legs from mid steel distally ) Neuro Extensive - Mental Status: Alert, Oriented x3, Nl Response to Commands Neuro Extensive - Motor, Sensory, Reflexes: No: Dysarthria, Abnormal Motor, Tremor Psychiatric: Alert, Normal Affect - Patient Data Lab Results Last 24 hrs: Laboratory Results - last 24 hr 07/06/20 07/06/20 07/06/20 Range/Units 12:31 13:00 13:03 WBC 9.2 (4.5-11.0) K/uL RBC 4.43 (4.30-5.90) M/uL Hgb 12.9 (12.0-15.0) g/dL Hct 41.3 (40.0-54.0) % MCV 93 (80-98) fL MCH 29 (27-31) pg MCHC 31 L (32-36) % Plt Count 201 (150-400) K/uL D-Dimer, Quantitative 1460.39 H (0.0-500.0) ng/mL Sodium (140-148) mmol/L Potassium (3.6-5.2) mmol/L Chloride (100-108) mmol/L Carbon Dioxide (21-32) mmol/L Anion Gap (5.0-14.0) mmol/L BUN (7-18) mg/dL Creatinine (0.8-1.3) mg/dL Est Cr Clr Drug Dosing mL/min Estimated GFR (MDRD) (>60) Glucose (74-106) mg/dL Lactic Acid (0.4-2.0) mmol/L Calcium (8.5-10.1) mg/dL Lactate Dehydrogenase 368 H (85-227) U/L SARS-CoV-2 RNA (NOHEMY) (NEGATIVE) 07/06/20 07/06/20 07/06/20 Range/Units 13:03 13:03 13:05 WBC (4.5-11.0) K/uL RBC (4.30-5.90) M/uL Hgb (12.0-15.0) g/dL Hct (40.0-54.0) % MCV (80-98) fL MCH (27-31) pg MCHC (32-36) % Plt Count (150-400) K/uL D-Dimer, Quantitative (0.0-500.0) ng/mL Sodium 130 L (140-148) mmol/L Potassium 5.0 (3.6-5.2) mmol/L Chloride 94 L (100-108) mmol/L Carbon Dioxide 26 (21-32) mmol/L Anion Gap 15.0 H (5.0-14.0) mmol/L BUN 28 H (7-18) mg/dL Creatinine 1.7 H (0.8-1.3) mg/dL Est Cr Clr Drug Dosing 41.83 mL/min Estimated GFR (MDRD) 40 L (>60) Glucose 102 (74-106) mg/dL Lactic Acid 1.4 (0.4-2.0) mmol/L Calcium 9.3 (8.5-10.1) mg/dL Lactate Dehydrogenase (85-227) U/L SARS-CoV-2 RNA (NOHEMY) Positive H (NEGATIVE) Result Diagrams: 07/06/20 13:03 07/06/20 13:03 Imaging Impressions Last 24 hrs: All of the images listed below were personally reviewed Chest [id number] very subtle right lower lung infiltrate. Heart size is normal. No large infiltrate, mass or effusion. CT scan of the chest with PE protocol-no evidence for pulmonary embolism. Patchy bilateral airspace disease that would be consistent with COVID-19 infection. No large infiltrate or effusion. Sepsis Event Note - Evaluation Sepsis Screening Result: Possible Sepsis Risk - Focused Exam Vital Signs: Vital Signs Temp Pulse Resp BP Pulse Ox Pulse Ox 07/06/20 15:22 37.1 C 84 22 H 97/45 L 97 07/06/20 14:37 38.1 C 92 26 H 125/63 94 L 07/06/20 12:49 95 07/06/20 12:43 38.6 C H 82 30 H 126/64 88 L *Q Meaningful Use (ADM) - VTE Risk Assess *Q Each Risk Factor Represents 1 Point: Obesity ( BMI > 25 kg/m2), Serious lung disease including pneumonia Total Score 1 Point Risk Factors: 2 Each Risk Factor Represents 2 Points: Age 60 - 74 Years Total Score 2 Point Risk Factors: 2 Each Risk Factor Represents 3 Points: History of DVT/PE Total Score 3 Point Risk Factors: 3 Each Risk Factor Represents 5 Points: None Total Score 5 Point Risk Factors: 0 Venous Thromboembolism Risk Factor Score *Q: 7 - Problem List (1) Pneumonia due to COVID-19 virus SNOMED Code(s): 260959329212156788 ICD Code: U07.1 - COVID-19; J12.89 - OTHER VIRAL PNEUMONIA Status: Acute Current Visit: Yes (2) Acute respiratory failure with hypoxia SNOMED Code(s): 20463170, 876178668 ICD Code: J96.01 - ACUTE RESPIRATORY FAILURE WITH HYPOXIA Status: Acute Current Visit: Yes (3) Hx pulmonary embolism SNOMED Code(s): 140814207 ICD Code: Z86.711 - PERSONAL HISTORY OF PULMONARY EMBOLISM Status: Chronic Current Visit: No (4) Asthma SNOMED Code(s): 266738422 ICD Code: J45.909 - UNSPECIFIED ASTHMA, UNCOMPLICATED Status: Chronic Current Visit: No Qualifiers: Asthma severity: mild Asthma persistence: intermittent Asthma compli cation type: uncomplicated Qualified Code(s): J45.20 - Mild intermittent asthma, uncomplicated (5) History of prostate cancer SNOMED Code(s): 511115344 ICD Code: Z85.46 - PERSONAL HISTORY OF MALIGNANT NEOPLASM OF PROSTATE Status: Chronic Current Visit: No Problem List Initiated/Reviewed/Updated: Yes Orders Last 24hrs: Active Orders 24 hr Category Date Time Status Patient Status Manage Transfer [TRANSFER] Routine ADT 07/06/20 16:25 Ordered Oxygen Therapy Adult [Oxygen Therapy, ED] [RC] Care 07/06/20 12:46 Active ASDIRECTED CULTURE BLOOD [BC] Stat Lab 07/06/20 12:50 Received CULTURE BLOOD [BC] Stat Lab 07/06/20 13:00 Received UA W/MICROSCOPIC [URIN] Stat Lab 07/06/20 12:45 Ordered Sodium Chloride 0.9% [Normal Saline] 100 ml Med 07/06/20 14:45 Active IV ASDIRECTED Resuscitation Status Routine Resus Stat 07/06/20 16:26 Ordered Medication Orders Sodium Chloride (Normal Saline) 100 mls @ 3.5 mls/sec IV ASDIRECTED CELINE Stop: 07/06/20 18:00 Last Admin: 07/06/20 15:06 Dose: 4 mls/sec Documented by: CARLA Assessment/Plan Comment:: ASSESSMENT AND PLAN - COVID-19 with bilateral pneumonia-complicated by acute respiratory failure with hypoxia. We did review treatments including dexamethasone, convalescent plasma and remdesivir. We did discuss that remdesivir is currently available under an emergency use authorization. Patient was agreeable to utilizing this medication after a discussion about the potential benefits versus risks. He is at a higher risk given his obesity, asthma and cancer history. -Supplement oxygen -Dexamethasone x5 to 10 days (start 07/06) -Convalescent plasma daily for 3 days -Remdesivir x5 days -Enoxaparin daily -Symptomatic management -Isolation precautions Mild intermittent asthma-no evidence for exacerbation at this time. This has been fairly well controlled. He has used an inhaler to help with shortness of breath but it has not provided any benefit. -Management as above History of PE-not currently anticoagulated. Hypertension-blood pressure acceptable. -Continue home meds History of prostate cancer- Maintenance issues - - DVT prophylaxis -enoxaparin - GI prophylaxis -not indicated - Nutrition -regular diet - Cole catheter -not indicated CODE STATUS -full code Admission justification -this patient will be admitted for inpatient services and is medically appropriate meeting medical necessity for inpatient admission as outlined in my documentation. I reasonably expect the patient will require inpatient services that span a period time over 2 midnights. I reasonably expect this patient to be discharged or transferred within 96 hours after admission to the [facility]. Disposition -I would anticipate discharge home after the hospital stay Primary care physician -no primary care at this time Smith Childers M.D. - Mortality Measure Prognosis:: Good
[2020-07-06] MEDS ORDERED: Magnesium Hydroxide 400 MG/5 ML Susp 30 ML Cup PO PRN (17:06)
[2020-07-06] MEDS ORDERED: Ondansetron 4 MG Tab.DIS PO PRN (17:06)
[2020-07-06] MEDS ORDERED: Acetaminophen 325 MG Tab PO PRN (17:06)
[2020-07-06] MEDS ORDERED: Ondansetron 4 MG/2 ML SDV IV PRN (17:06)
[2020-07-06] MEDS ORDERED: Benzonatate 100 MG Cap PO PRN (17:06)
[2020-07-06] MEDS ORDERED: Melatonin 3 MG Tab PO PRN (17:06)
[2020-07-06] MEDS ORDERED: guaiFENesin/Dextromethorphan 100-10 MG/5 ML Soln 10 ML Cup PO PRN (17:06)
[2020-07-06] MEDS ORDERED: Promethazine 25 MG Tab PO PRN (17:06)
[2020-07-06] MEDS: Enoxaparin 40 MG/0.4 ML Syringe SUBCUT SCH (17:34)
[2020-07-06] MEDS ORDERED: REMDESIVIR 200 MG in Sodium Chloride 0.9% 250 ML IV ONE (18:00)
[2020-07-06] MEDS: Lisinopril 10 MG Tab PO SCH (20:48)
[2020-07-06] MEDS: Carvedilol 12.5 MG Tab PO SCH (20:48)
[2020-07-07] MEDS ORDERED: Non-Formulary Medication 1 Each (Levothyroxine [Levothyroxine] 75 MCG) PO SCH (07:30)
[2020-07-07] MEDS: Spironolactone 25 MG Tab PO SCH (08:32)
[2020-07-07] MEDS: Aspirin 81 MG Tab.Chew PO SCH (08:32)
[2020-07-07] MEDS: Levothyroxine 25 MCG, Levothyroxine 50 MCG PO SCH ×2 (08:33)
[2020-07-07] MEDS: Hydrochlorothiazide 12.5 MG Cap PO SCH (08:34)
[2020-07-07] MEDS: Carvedilol 12.5 MG Tab PO SCH ×2 (08:35→20:46)
[2020-07-07] MEDS: Lisinopril 10 MG Tab PO SCH (08:35)
--- NOTE | 2020-07-07 15:37 | PCM.PN ---
- General Info Date of Service: 07/07/20 Subjective Update: No acute events overnight. Tolerating medication so far. Symptomatically he is feeling better with less shortness of breath and less cough. He is producing a small amount of clear sputum. No fevers overnight. No abdominal pain or nausea. No diarrhea. Aches and pains have improved. Overall he is doing better. Labs are stable. Functional Status: Reports: Pain Controlled, Tolerating Diet - Review of Systems General: Reports: Weakness. Denies: Fever Pulmonary: Reports: Shortness of Breath, Cough - Patient Data Vitals - Most Recent: Last Vital Signs Temp 36.1 C 07/07/20 10:48 Pulse 86 07/07/20 10:48 Resp 18 07/07/20 10:48 BP 93/49 L 07/07/20 10:48 Pulse Ox 92 L 07/07/20 13:34 Weight - Most Recent: 133.81 kg Lab Results Last 24 Hours: Laboratory Results - last 24 hr 07/06/20 07/06/20 07/07/20 Range/Units 17:14 19:55 05:10 WBC 2.9 L (4.5-11.0) K/uL RBC 3.65 L (4.30-5.90) M/uL Hgb 10.5 L D (12.0-15.0) g/dL Hct 34.3 L (40.0-54.0) % MCV 94 (80-98) fL MCH 29 (27-31) pg MCHC 31 L (32-36) % Plt Count 202 (150-400) K/uL Sodium (140-148) mmol/L Potassium (3.6-5.2) mmol/L Chloride (100-108) mmol/L Carbon Dioxide (21-32) mmol/L Anion Gap (5.0-14.0) mmol/L BUN (7-18) mg/dL Creatinine (0.8-1.3) mg/dL Est Cr Clr Drug Dosing mL/min Estimated GFR (MDRD) (>60) Glucose (74-106) mg/dL Calcium (8.5-10.1) mg/dL Total Bilirubin (0.2-1.0) mg/dL AST (15-37) U/L ALT (12-78) U/L Alkaline Phosphatase (46-116) U/L Total Protein (6.4-8.2) g/dL Albumin (3.4-5.0) g/dL Globulin (2.3-3.5) g/dL Albumin/Globulin Ratio (1.2-2.2) Urine Color Yellow (YELLOW) Urine Appearance Clear (CLEAR) Urine pH 5.0 (5.0-8.0) Ur Specific Mcgrew 1.015 (1.008-1.030) Urine Protein Trace H (NEGATIVE) mg/dL Urine Glucose (UA) Negative (NEGATIVE) mg/dL Urine Ketones Negative (NEGATIVE) mg/dL Urine Occult Blood Trace-intact H (NEGATIVE) Urine Nitrite Negative (NEGATIVE) Urine Bilirubin Negative (NEGATIVE) Urine Urobilinogen 0.2 (0.2-1.0) EU/dL Ur Leukocyte Esterase Negative (NEGATIVE) Urine RBC Not seen (0-5) Urine WBC Not seen (0-5) Ur Epithelial Cells Not seen Urine Bacteria Not seen Blood Type A POSITIVE 07/07/20 Range/Units 05:10 WBC (4.5-11.0) K/uL RBC (4.30-5.90) M/uL Hgb (12.0-15.0) g/dL Hct (40.0-54.0) % MCV (80-98) fL MCH (27-31) pg MCHC (32-36) % Plt Count (150-400) K/uL Sodium 134 L (140-148) mmol/L Potassium 5.0 (3.6-5.2) mmol/L Chloride 100 (100-108) mmol/L Carbon Dioxide 26 (21-32) mmol/L Anion Gap 13.0 (5.0-14.0) mmol/L BUN 27 H (7-18) mg/dL Creatinine 1.4 H (0.8-1.3) mg/dL Est Cr Clr Drug Dosing 49.25 mL/min Estimated GFR (MDRD) 50 L (>60) Glucose 144 H (74-106) mg/dL Calcium 8.6 (8.5-10.1) mg/dL Total Bilirubin 0.3 D (0.2-1.0) mg/dL AST 28 (15-37) U/L ALT 29 (12-78) U/L Alkaline Phosphatase 38 L (46-116) U/L Total Protein 6.4 (6.4-8.2) g/dL Albumin 2.4 L (3.4-5.0) g/dL Globulin 4.0 H (2.3-3.5) g/dL Albumin/Globulin Ratio 0.6 L (1.2-2.2) Urine Color (YELLOW) Urine Appearance (CLEAR) Urine pH (5.0-8.0) Ur Specific Mcgrew (1.008-1.030) Urine Protein (NEGATIVE) mg/dL Urine Glucose (UA) (NEGATIVE) mg/dL Urine Ketones (NEGATIVE) mg/dL Urine Occult Blood (NEGATIVE) Urine Nitrite (NEGATIVE) Urine Bilirubin (NEGATIVE) Urine Urobilinogen (0.2-1.0) EU/dL Ur Leukocyte Esterase (NEGATIVE) Urine RBC (0-5) Urine WBC (0-5) Ur Epithelial Cells Urine Bacteria Blood Type Adolph Results Last 24 Hours: Microbiology 07/06/20 12:50 Aerobic Blood Culture - Preliminary Blood - Venous - Iv Start NO GROWTH AFTER 1 DAY Anaerobic Blood Culture - Preliminary NO GROWTH AFTER 1 DAY 07/06/20 13:00 Aerobic Blood Culture - Preliminary Blood - Arm, Right NO GROWTH AFTER 1 DAY Anaerobic Blood Culture - Preliminary NO GROWTH AFTER 1 DAY Med Orders - Current: Current Medications Acetaminophen (Tylenol) 650 mg PO Q4H PRN PRN Reason: Pain (Mild 1-3)/fever Aspirin (Aspirin) 162 mg PO DAILY [facility] Last Admin: 07/07/20 08:32 Dose: 162 mg Documented by: Benzonatate (Tessalon Perles) 100 mg PO TID PRN PRN Reason: Cough Carvedilol (Coreg) 25 mg PO BID [facility] Last Admin: 07/07/20 08:35 Dose: 25 mg Documented by: Dexamethasone (Dexamethasone) 6 mg PO Q24H [facility] Enoxaparin Sodium (Lovenox) 40 mg SUBCUT Q24H [facility] Last Admin: 07/06/20 17:34 Dose: 40 mg Documented by: Guaifenesin/Dextromethorphan (Robitussin Dm) 10 ml PO Q4H PRN PRN Reason: Cough Hydrochlorothiazide (Hydrochlorothiazide) 12.5 mg PO DAILY [facility] Last Admin: 07/07/20 08:34 Dose: 12.5 mg Documented by: Remdesivir 100 mg/ Sodium (Chloride) 100 mls @ 100 mls/hr IV Q24H [facility] Stop: 07/10/20 17:59 Levothyroxine Sodium 25 mcg/ (Levothyroxine Sodium 50 mcg) 75 mcg PO ACBREAKFAST [facility] Last Admin: 07/07/20 08:33 Dose: 75 mcg Documented by: Lisinopril (Prinivil) 20 mg PO BID [facility] Magnesium Hydroxide (Milk Of Magnesia) 30 ml PO Q12H PRN PRN Reason: Constipation Melatonin (Melatonin) 9 mg PO BEDTIME PRN PRN Reason: Sleep Ondansetron HCl (Zofran) 4 mg IV Q6H PRN PRN Reason: Nausea/Vomiting Ondansetron HCl (Zofran Odt) 4 mg PO Q6H PRN PRN Reason: Nausea able to take PO Promethazine HCl (Phenergan) 25 mg PO Q6H PRN PRN Reason: Nausea able to take PO Senna/Docusate Sodium (Senna Plus) 1 tab PO BID PRN PRN Reason: Constipation Spironolactone (Aldactone) 12.5 mg PO DAILY [facility] Last Admin: 07/07/20 08:32 Dose: 12.5 mg Documented by: Discontinued Medications Acetaminophen (Tylenol Extra Strength) 1,000 mg PO ONETIME ONE Stop: 07/06/20 12:48 Last Admin: 07/06/20 13:34 Dose: 1,000 mg Documented by: Dexamethasone (Dexamethasone) 6 mg PO ONETIME ONE Stop: 07/06/20 16:25 Last Admin: 07/06/20 16:45 Dose: 6 mg Documented by: Lactated Ringer's (Ringers, Lactated) 1,000 mls @ 1,000 mls/hr IV BOLUS ONE Stop: 07/06/20 13:43 Last Admin: 07/06/20 13:32 Dose: 1,000 mls/hr Documented by: Ceftriaxone Sodium 1 gm/ (Sodium Chloride) 50 mls @ 100 mls/hr IV ONETIME ONE Stop: 07/06/20 15:14 Last Admin: 07/06/20 15:21 Dose: 100 mls/hr Documented by: Sodium Chloride (Normal Saline) 100 mls @ 3.5 mls/sec IV ASDIRECTED [facility] Stop: 07/06/20 18:00 Last Admin: 07/06/20 15:06 Dose: 4 mls/sec Documented by: Remdesivir 200 mg/ Sodium (Chloride) 250 mls @ 250 mls/hr IV ONETIME ONE Stop: 07/06/20 18:59 Last Admin: 07/06/20 17:33 Dose: 250 mls/hr Documented by: Iopamidol (Isovue-370 (76%)) 100 ml IV . DIRECTED [facility] Stop: 07/06/20 14:46 Last Admin: 07/06/20 15:06 Dose: 100 ml Documented by: Lisinopril (Prinivil) 20 mg PO BID [facility] Last Admin: 07/07/20 08:35 Dose: 20 mg Documented by: Sodium Chloride (Saline Flush) 10 ml FLUSH ONETIME ONE Stop: 07/06/20 14:44 Last Admin: 07/06/20 15:06 Dose: 10 ml Documented by: - Exam Quality Assessment: Supplemental Oxygen General: Alert, Oriented, Cooperative, No Acute Distress Lungs: Normal Respiratory Effort, Crackles (rare both bases) Cardiovascular: Regular Rate, Regular Rhythm GI/Abdominal Exam: Soft, No Distention Extremities: Pedal Edema (trace bilateral ankle edema ). No: Increased Warmth Skin: Warm, Dry Psy/Mental Status: Alert, Normal Affect Sepsis Event Note - Evaluation Sepsis Screening Result: No Definite Risk - Focused Exam Vital Signs: Vital Signs Temp Pulse Pulse Resp BP BP Pulse Ox 07/07/20 13:34 92 L 07/07/20 10:48 36.1 C 86 18 93/49 L 93 L 07/07/20 08:35 64 106/54 L 07/07/20 07:24 93 L 07/07/20 07:00 36.1 C 64 16 106/54 L 93 L - Problem List & Annotations (1) Pneumonia due to COVID-19 virus SNOMED Code(s): 508636172831982281 Code(s): U07.1 - COVID-19; J12.89 - OTHER VIRAL PNEUMONIA Status: Acute Current Visit: Yes (2) Acute respiratory failure with hypoxia SNOMED Code(s): 48551565, 388866895 Code(s): J96.01 - ACUTE RESPIRATORY FAILURE WITH HYPOXIA Status: Acute Current Visit: Yes (3) Hx pulmonary embolism SNOMED Code(s): 295530012 Code(s): Z86.711 - PERSONAL HISTORY OF PULMONARY EMBOLISM Status: Chronic Current Visit: No (4) Asthma SNOMED Code(s): 990520978 Code(s): J45.909 - UNSPECIFIED ASTHMA, UNCOMPLICATED Status: Chronic Current Visit: No Qualifiers: Asthma severity: mild Asthma persistence: intermittent Asthma complication type: uncomplicated Qualified Code(s): J45.20 - Mild intermittent asthma, uncomplicated (5) History of prostate cancer SNOMED Code(s): 866689310 Code(s): Z85.46 - PERSONAL HISTORY OF MALIGNANT NEOPLASM OF PROSTATE Status: Chronic Current Visit: No - Problem List Review Problem List Initiated/Reviewed/Updated: Yes - My Orders Last 24 Hours: My Active Orders 07/06/20 16:26 Resuscitation Status Routine 07/06/20 Dinner Regular Diet [DIET] 07/06/20 17:06 Acetaminophen [TylenoL] 650 mg PO Q4H PRN Benzonatate [Tessalon Perles] 100 mg PO TID PRN Dextromethorphan/guaiFENesin [Robitussin DM] 10 ml PO Q4H PRN Docusate Sodium/Sennosides [Senna Plus] 1 tab PO BID PRN Magnesium Hydroxide [Milk of Magnesia] 30 ml PO Q12H PRN Melatonin 9 mg PO BEDTIME PRN Ondansetron [Zofran ODT] 4 mg PO Q6H PRN Ondansetron [Zofran] 4 mg IV Q6H PRN Promethazine [Phenergan] 25 mg PO Q6H PRN 07/06/20 17:06 Patient Status [ADT] Routine Intake and Output [RC] QSHIFT Notify Provider Vital Signs [RC] ASDIRECTED Nurse Communication: Isolation [RC] ASDIRECTED Oxygen Therapy [RC] PRN Pulse Oximetry [RC] CONTINUOUS Up With Assistance [RC] ASDIRECTED VTE/DVT Education [RC] Per Unit Routine Verify Patient Consent Obtain [RC] ASDIRECTED Vital Signs [RC] Q4H Convert IV to Saline Lock [OM.PC] Routine Isolation [COMM] Routine Transfuse Fresh Frozen Plasma [COMM] Routine 07/06/20 17:14 ABO/RH TYPE [BBK] Routine FRESH FROZEN PLASMA [BBK] Routine PATIENT RETYPE [BBK] Routine 07/06/20 18:00 Enoxaparin [Lovenox] 40 mg SUBCUT Q24H 07/06/20 21:00 carvediloL [Coreg] 25 mg PO BID 07/07/20 07:30 Levothyroxine [Synthroid] 75 mcg PO ACBREAKFAST 07/07/20 09:00 Aspirin 162 mg PO DAILY Spironolactone [Aldactone] 12.5 mg PO DAILY hydroCHLOROthiazide 12.5 mg PO DAILY 07/07/20 15:34 Transfuse Fresh Frozen Plasma [COMM] Routine 07/07/20 17:00 Remdesivir (Eua) [Remdesivir (EUA)] 100 mg Sodium Chloride 0.9% [Normal Saline] 100 ml IV Q24H 07/07/20 18:00 dexAMETHasone 6 mg PO Q24H 07/07/20 21:00 lisinopriL [Prinivil] 20 mg PO BID 07/08/20 05:00 C-REACTIVE PROTEIN [CHEM] Timed CBC W/O DIFF,HEMOGRAM [HEME] Timed (1) COMPREHENSIVE METABOLIC PN,CMP [CHEM] Timed D-DIMER QUANTITATIVE [COAG] Timed - Plan Plan:: ASSESSMENT AND PLAN - COVID-19 with bilateral pneumonia-complicated by acute respiratory failure with hypoxia. Tolerating treatment so far. Clinically doing a little better today. No fevers. Vital signs are stable. -Supplement oxygen -Dexamethasone x5 to 10 days (start 07/06) -Convalescent plasma daily for 3 days (2 of 3) -Remdesivir x5 days (2 of 5) -Enoxaparin daily -Symptomatic management -Isolation precautions Mild intermittent asthma-no evidence for exacerbation at this time. -Management as above History of PE-not currently anticoagulated. Hypertension-blood pressure acceptable. -Continue home meds History of prostate cancer Maintenance issues - - DVT prophylaxis -enoxaparin - GI prophylaxis -not indicated - Nutrition -regular diet Disposition -I would anticipate discharge home after the hospital stay Smith Childers M.D.
[2020-07-07] MEDS: REMDESIVIR 100 MG in Sodium Chloride 0.9% 100 ML IV SCH (17:12)
[2020-07-07] MEDS: Enoxaparin 40 MG/0.4 ML Syringe SUBCUT SCH (17:13)
[2020-07-07] MEDS: Dexamethasone 2 MG Tab PO SCH (17:13)
[2020-07-07] MEDS: Lisinopril 20 MG Tab PO SCH (20:46)
[2020-07-08] MEDS: Lisinopril 20 MG Tab PO SCH ×2 (09:40→20:25)
[2020-07-08] MEDS: Carvedilol 12.5 MG Tab PO SCH ×2 (09:40→20:26)
[2020-07-08] MEDS: Spironolactone 25 MG Tab PO SCH (09:40)
[2020-07-08] MEDS: Hydrochlorothiazide 12.5 MG Cap PO SCH (09:40)
[2020-07-08] MEDS: Levothyroxine 25 MCG, Levothyroxine 50 MCG PO SCH ×2 (09:41)
[2020-07-08] MEDS: Aspirin 81 MG Tab.Chew PO SCH (09:41)
--- NOTE | 2020-07-08 13:33 | PCM.PN ---
- General Info Date of Service: 07/08/20 Subjective Update: No acute events overnight. Patient feels about the same today as yesterday. He is somewhat short of breath with activity but okay at rest. Oxygenation is declined only slightly from yesterday. Tolerating treatment for the Covid infection. No significant headache at this time. Inflammatory markers are slightly improved today. Functional Status: Reports: Pain Controlled, Tolerating Diet - Review of Systems General: Reports: Weakness. Denies: Fever Pulmonary: Reports: Shortness of Breath - Patient Data Vitals - Most Recent: Last Vital Signs Temp 35.9 C L 07/08/20 10:59 Pulse 71 07/08/20 10:59 Resp 18 07/08/20 10:59 BP 96/50 L 07/08/20 10:59 Pulse Ox 93 L 07/08/20 10:59 Weight - Most Recent: 133.81 kg I&O - Last 24 Hours: Intake & Output 07/07/20 07/08/20 07/08/20 22:59 06:59 14:59 Intake Total 360 Balance 360 Lab Results Last 24 Hours: Laboratory Results - last 24 hr 07/06/20 07/08/20 07/08/20 Range/Units 17:14 05:54 05:54 WBC 6.2 (4.5-11.0) K/uL RBC 3.85 L (4.30-5.90) M/uL Hgb 11.0 L (12.0-15.0) g/dL Hct 36.0 L (40.0-54.0) % MCV 94 (80-98) fL MCH 29 (27-31) pg MCHC 31 L (32-36) % Plt Count 247 (150-400) K/uL D-Dimer, Quantitative 1237.38 H (0.0-500.0) ng/mL Sodium (140-148) mmol/L Potassium (3.6-5.2) mmol/L Chloride (100-108) mmol/L Carbon Dioxide (21-32) mmol/L Anion Gap (5.0-14.0) mmol/L BUN (7-18) mg/dL Creatinine (0.8-1.3) mg/dL Est Cr Clr Drug Dosing mL/min Estimated GFR (MDRD) (>60) Glucose (74-106) mg/dL Calcium (8.5-10.1) mg/dL Total Bilirubin (0.2-1.0) mg/dL AST (15-37) U/L ALT (12-78) U/L Alkaline Phosphatase (46-116) U/L C-Reactive Protein (0.0-0.3) mg/dL Total Protein (6.4-8.2) g/dL Albumin (3.4-5.0) g/dL Globulin (2.3-3.5) g/dL Albumin/Globulin Ratio (1.2-2.2) Blood Type A POSITIVE 07/08/20 Range/Units 05:54 WBC (4.5-11.0) K/uL RBC (4.30-5.90) M/uL Hgb (12.0-15.0) g/dL Hct (40.0-54.0) % MCV (80-98) fL MCH (27-31) pg MCHC (32-36) % Plt Count (150-400) K/uL D-Dimer, Quantitative (0.0-500.0) ng/mL Sodium 136 L (140-148) mmol/L Potassium 5.2 (3.6-5.2) mmol/L Chloride 101 (100-108) mmol/L Carbon Dioxide 26 (21-32) mmol/L Anion Gap 14.2 H (5.0-14.0) mmol/L BUN 37 H (7-18) mg/dL Creatinine 1.3 (0.8-1.3) mg/dL Est Cr Clr Drug Dosing 53.16 mL/min Estimated GFR (MDRD) 54 L (>60) Glucose 144 H (74-106) mg/dL Calcium 8.7 (8.5-10.1) mg/dL Total Bilirubin 0.2 (0.2-1.0) mg/dL AST 28 (15-37) U/L ALT 31 (12-78) U/L Alkaline Phosphatase 39 L (46-116) U/L C-Reactive Protein 10.38 H (0.0-0.3) mg/dL Total Protein 6.6 (6.4-8.2) g/dL Albumin 2.6 L (3.4-5.0) g/dL Globulin 4.0 H (2.3-3.5) g/dL Albumin/Globulin Ratio 0.7 L (1.2-2.2) Blood Type Adolph Results Last 24 Hours: Microbiology 07/06/20 12:50 Aerobic Blood Culture - Preliminary Blood - Venous - Iv Start NO GROWTH AFTER 2 DAYS Anaerobic Blood Culture - Preliminary NO GROWTH AFTER 2 DAYS 07/06/20 13:00 Aerobic Blood Culture - Preliminary Blood - Arm, Right NO GROWTH AFTER 2 DAYS Anaerobic Blood Culture - Preliminary NO GROWTH AFTER 2 DAYS Med Orders - Current: Current Medications Acetaminophen (Tylenol) 650 mg PO Q4H PRN PRN Reason: Pain (Mild 1-3)/fever Aspirin (Aspirin) 162 mg PO DAILY [facility] Last Admin: 07/08/20 09:41 Dose: 162 mg Documented by: Benzonatate (Tessalon Perles) 100 mg PO TID PRN PRN Reason: Cough Carvedilol (Coreg) 25 mg PO BID [facility] Last Admin: 07/08/20 09:40 Dose: 25 mg Documented by: Dexamethasone (Dexamethasone) 6 mg PO Q24H [facility] Last Admin: 07/07/20 17:13 Dose: 6 mg Documented by: Enoxaparin Sodium (Lovenox) 40 mg SUBCUT Q24H [facility] Last Admin: 07/07/20 17:13 Dose: 40 mg Documented by: Guaifenesin/Dextromethorphan (Robitussin Dm) 10 ml PO Q4H PRN PRN Reason: Cough Hydrochlorothiazide (Hydrochlorothiazide) 12.5 mg PO DAILY [facility] Last Admin: 07/08/20 09:40 Dose: 12.5 mg Documented by: Remdesivir 100 mg/ Sodium (Chloride) 100 mls @ 100 mls/hr IV Q24H [facility] Stop: 07/10/20 17:59 Last Admin: 07/07/20 17:12 Dose: 100 mls/hr Documented by: Levothyroxine Sodium 25 mcg/ (Levothyroxine Sodium 50 mcg) 75 mcg PO ACBREAKFAST [facility] Last Admin: 07/08/20 09:41 Dose: 75 mcg Documented by: Lisinopril (Prinivil) 20 mg PO BID [facility] Last Admin: 07/08/20 09:40 Dose: 20 mg Documented by: Magnesium Hydroxide (Milk Of Magnesia) 30 ml PO Q12H PRN PRN Reason: Constipation Melatonin (Melatonin) 9 mg PO BEDTIME PRN PRN Reason: Sleep Ondansetron HCl (Zofran) 4 mg IV Q6H PRN PRN Reason: Nausea/Vomiting Ondansetron HCl (Zofran Odt) 4 mg PO Q6H PRN PRN Reason: Nausea able to take PO Promethazine HCl (Phenergan) 25 mg PO Q6H PRN PRN Reason: Nausea able to take PO Senna/Docusate Sodium (Senna Plus) 1 tab PO BID PRN PRN Reason: Constipation Spironolactone (Aldactone) 12.5 mg PO DAILY [facility] Last Admin: 07/08/20 09:40 Dose: 12.5 mg Documented by: Discontinued Medications Acetaminophen (Tylenol Extra Strength) 1,000 mg PO ONETIME ONE Stop: 07/06/20 12:48 Last Admin: 07/06/20 13:34 Dose: 1,000 mg Documented by: Dexamethasone (Dexamethasone) 6 mg PO ONETIME ONE Stop: 07/06/20 16:25 Last Admin: 07/06/20 16:45 Dose: 6 mg Documented by: Lactated Ringer's (Ringers, Lactated) 1,000 mls @ 1,000 mls/hr IV BOLUS ONE Stop: 07/06/20 13:43 Last Admin: 07/06/20 13:32 Dose: 1,000 mls/hr Documented by: Ceftriaxone Sodium 1 gm/ (Sodium Chloride) 50 mls @ 100 mls/hr IV ONETIME ONE Stop: 07/06/20 15:14 Last Admin: 07/06/20 15:21 Dose: 100 mls/hr Documented by: Sodium Chloride (Normal Saline) 100 mls @ 3.5 mls/sec IV ASDIRECTED [facility] Stop: 07/06/20 18:00 Last Admin: 07/06/20 15:06 Dose: 4 mls/sec Documented by: Remdesivir 200 mg/ Sodium (Chloride) 250 mls @ 250 mls/hr IV ONETIME ONE Stop: 07/06/20 18:59 Last Admin: 07/06/20 17:33 Dose: 250 mls/hr Documented by: Iopamidol (Isovue-370 (76%)) 100 ml IV . DIRECTED [facility] Stop: 07/06/20 14:46 Last Admin: 07/06/20 15:06 Dose: 100 ml Documented by: Lisinopril (Prinivil) 20 mg PO BID [facility] Last Admin: 07/07/20 08:35 Dose: 20 mg Documented by: Sodium Chloride (Saline Flush) 10 ml FLUSH ONETIME ONE Stop: 07/06/20 14:44 Last Admin: 07/06/20 15:06 Dose: 10 ml Documented by: - Exam Quality Assessment: Supplemental Oxygen General: Alert, Oriented, Cooperative, No Acute Distress Lungs: Normal Respiratory Effort, Crackles (few fine crackles both bases). No: Wheezing Cardiovascular: Regular Rate, Regular Rhythm GI/Abdominal Exam: Soft, No Distention Extremities: Pedal Edema. No: Increased Warmth Skin: Warm, Dry Psy/Mental Status: Alert, Normal Affect Sepsis Event Note - Evaluation Sepsis Screening Result: No Definite Risk - Focused Exam Vital Signs: Vital Signs Temp Pulse Pulse Resp BP BP Pulse Ox 07/08/20 10:59 35.9 C L 71 18 96/50 L 93 L 07/08/20 09:40 70 113/55 L 07/08/20 09:00 07/08/20 07:00 35.9 C L 70 20 113/55 L 93 L 07/08/20 02:18 35.9 C L 59 L 22 H 119/53 L 93 L Pulse Ox 07/08/20 10:59 07/08/20 09:40 07/08/20 09:00 91 L 07/08/20 07:00 07/08/20 02:18 - Problem List & Annotations (1) Pneumonia due to COVID-19 virus SNOMED Code(s): 025242878827846617 Code(s): U07.1 - COVID-19; J12.89 - OTHER VIRAL PNEUMONIA Status: Acute Current Visit: Yes (2) Acute respiratory failure with hypoxia SNOMED Code(s): 63968536, 675128505 Code(s): J96.01 - ACUTE RESPIRATORY FAILURE WITH HYPOXIA Status: Acute Current Visit: Yes (3) Hx pulmonary embolism SNOMED Code(s): 657221093 Code(s): Z86.711 - PERSONAL HISTORY OF PULMONARY EMBOLISM Status: Chronic Current Visit: No (4) Asthma SNOMED Code(s): 708126883 Code(s): J45.909 - UNSPECIFIED ASTHMA, UNCOMPLICATED Status: Chronic Current Visit: No Qualifiers: Asthma severity: mild Asthma persistence: intermittent Asthma complicati on type: uncomplicated Qualified Code(s): J45.20 - Mild intermittent asthma, uncomplicated (5) History of prostate cancer SNOMED Code(s): 454894109 Code(s): Z85.46 - PERSONAL HISTORY OF MALIGNANT NEOPLASM OF PROSTATE Status: Chronic Current Visit: No - Problem List Review Problem List Initiated/Reviewed/Updated: Yes - My Orders Last 24 Hours: My Active Orders 07/07/20 15:34 Transfuse Fresh Frozen Plasma [COMM] Routine 07/07/20 17:00 Remdesivir (Eua) [Remdesivir (EUA)] 100 mg Sodium Chloride 0.9% [Normal Saline] 100 ml IV Q24H 07/07/20 18:00 dexAMETHasone 6 mg PO Q24H 07/07/20 21:00 lisinopriL [Prinivil] 20 mg PO BID 07/08/20 17:00 Transfuse Fresh Frozen Plasma [COMM] Routine 07/09/20 05:00 COMPREHENSIVE METABOLIC PN,CMP [CHEM] Timed - Plan Plan:: ASSESSMENT AND PLAN - COVID-19 with bilateral pneumonia-complicated by acute respiratory failure with hypoxia. Tolerating treatment so far. Clinically stable so far. He has a slight increase in his supplemental oxygen requirements to 3 L today. -Supplement oxygen -Dexamethasone x5 to 10 days (start 07/06) -Convalescent plasma daily for 3 days (3 of 3) -Remdesivir x5 days (3 of 5) -Enoxaparin daily -Symptomatic management -Isolation precautions Mild intermittent asthma-no evidence for exacerbation at this time. -Management as above History of PE-not currently anticoagulated. Hypertension-blood pressure acceptable. -Continue home meds History of prostate cancer Maintenance issues - - DVT prophylaxis -enoxaparin - GI prophylaxis -not indicated - Nutrition -regular diet Disposition -I would anticipate discharge home after the hospital stay Smith Childers M.D.
[2020-07-08] MEDS: REMDESIVIR 100 MG in Sodium Chloride 0.9% 100 ML IV SCH (17:17)
[2020-07-08] MEDS: Enoxaparin 40 MG/0.4 ML Syringe SUBCUT SCH (17:18)
[2020-07-08] MEDS: Dexamethasone 2 MG Tab PO SCH (17:36)
[2020-07-09] MEDS: Levothyroxine 25 MCG, Levothyroxine 50 MCG PO SCH ×2 (08:13)
[2020-07-09] MEDS: Aspirin 81 MG Tab.Chew PO SCH (08:14)
[2020-07-09] MEDS: Spironolactone 25 MG Tab PO SCH (08:14)
[2020-07-09] MEDS: Lisinopril 20 MG Tab PO SCH ×2 (08:14→20:00)
[2020-07-09] MEDS: Hydrochlorothiazide 12.5 MG Cap PO SCH (08:14)
[2020-07-09] MEDS: Carvedilol 12.5 MG Tab PO SCH ×2 (08:14→20:00)
--- NOTE | 2020-07-09 13:04 | PCM.PN ---
- General Info Date of Service: 07/09/20 Subjective Update: No acute events overnight. Oxygenation is stable on 3 L. He had a little bit more difficulty with cough this morning but thinks his breathing is the same or maybe a little better than yesterday. No fevers. No headache or myalgias. Appetite is good. He does get winded with his walks to the bathroom but seems to be recovering faster today. Labs are stable. Functional Status: Reports: Pain Controlled, Tolerating Diet - Review of Systems General: Reports: Weakness. Denies: Fever Pulmonary: Reports: Shortness of Breath - Patient Data Vitals - Most Recent: Last Vital Signs Temp 36.8 C 07/09/20 07:15 Pulse 63 07/09/20 08:14 Resp 18 07/09/20 07:15 BP 138/66 07/09/20 08:14 Pulse Ox 94 L 07/09/20 07:27 Weight - Most Recent: 133.81 kg I&O - Last 24 Hours: Intake & Output 07/08/20 07/09/20 07/09/20 22:59 06:59 14:59 Intake Total 400 630 Balance 400 630 Lab Results Last 24 Hours: Laboratory Results - last 24 hr 07/06/20 07/09/20 Range/Units 17:14 04:10 Sodium 136 L (140-148) mmol/L Potassium 5.0 (3.6-5.2) mmol/L Chloride 101 (100-108) mmol/L Carbon Dioxide 26 (21-32) mmol/L Anion Gap 14.0 (5.0-14.0) mmol/L BUN 35 H (7-18) mg/dL Creatinine 1.2 (0.8-1.3) mg/dL Est Cr Clr Drug Dosing 57.59 mL/min Estimated GFR (MDRD) 60 (>60) Glucose 145 H (74-106) mg/dL Calcium 8.8 (8.5-10.1) mg/dL Total Bilirubin 0.2 (0.2-1.0) mg/dL AST 26 (15-37) U/L ALT 36 (12-78) U/L Alkaline Phosphatase 41 L (46-116) U/L Total Protein 6.6 (6.4-8.2) g/dL Albumin 2.7 L (3.4-5.0) g/dL Globulin 3.9 H (2.3-3.5) g/dL Albumin/Globulin Ratio 0.7 L (1.2-2.2) Blood Type A POSITIVE Adolph Results Last 24 Hours: Microbiology 07/06/20 13:00 Aerobic Blood Culture - Preliminary Blood - Arm, Right NO GROWTH AFTER 3 DAYS Anaerobic Blood Culture - Preliminary NO GROWTH AFTER 3 DAYS 07/06/20 12:50 Aerobic Blood Culture - Preliminary Blood - Venous - Iv Start NO GROWTH AFTER 3 DAYS Anaerobic Blood Culture - Preliminary NO GROWTH AFTER 3 DAYS Med Orders - Current: Current Medications Acetaminophen (Tylenol) 650 mg PO Q4H PRN PRN Reason: Pain (Mild 1-3)/fever Aspirin (Aspirin) 162 mg PO DAILY [facility] Last Admin: 07/09/20 08:14 Dose: 162 mg Documented by: Benzonatate (Tessalon Perles) 100 mg PO TID PRN PRN Reason: Cough Carvedilol (Coreg) 25 mg PO BID [facility] Last Admin: 07/09/20 08:14 Dose: 25 mg Documented by: Dexamethasone (Dexamethasone) 6 mg PO Q24H [facility] Last Admin: 07/08/20 17:36 Dose: 6 mg Documented by: Enoxaparin Sodium (Lovenox) 40 mg SUBCUT Q24H [facility] Last Admin: 07/08/20 17:18 Dose: 40 mg Documented by: Guaifenesin/Dextromethorphan (Robitussin Dm) 10 ml PO Q4H PRN PRN Reason: Cough Hydrochlorothiazide (Hydrochlorothiazide) 12.5 mg PO DAILY [facility] Last Admin: 07/09/20 08:14 Dose: 12.5 mg Documented by: Remdesivir 100 mg/ Sodium (Chloride) 100 mls @ 100 mls/hr IV Q24H [facility] Stop: 07/10/20 17:59 Last Admin: 07/08/20 17:17 Dose: 100 mls/hr Documented by: Levothyroxine Sodium 25 mcg/ (Levothyroxine Sodium 50 mcg) 75 mcg PO ACBREAKFAST [facility] Last Admin: 07/09/20 08:13 Dose: 75 mcg Documented by: Lisinopril (Prinivil) 20 mg PO BID [facility] Last Admin: 07/09/20 08:14 Dose: 20 mg Documented by: Magnesium Hydroxide (Milk Of Magnesia) 30 ml PO Q12H PRN PRN Reason: Constipation Melatonin (Melatonin) 9 mg PO BEDTIME PRN PRN Reason: Sleep Ondansetron HCl (Zofran) 4 mg IV Q6H PRN PRN Reason: Nausea/Vomiting Ondansetron HCl (Zofran Odt) 4 mg PO Q6H PRN PRN Reason: Nausea able to take PO Promethazine HCl (Phenergan) 25 mg PO Q6H PRN PRN Reason: Nausea able to take PO Senna/Docusate Sodium (Senna Plus) 1 tab PO BID PRN PRN Reason: Constipation Spironolactone (Aldactone) 12.5 mg PO DAILY [facility] Last Admin: 07/09/20 08:14 Dose: 12.5 mg Documented by: Discontinued Medications Acetaminophen (Tylenol Extra Strength) 1,000 mg PO ONETIME ONE Stop: 07/06/20 12:48 Last Admin: 07/06/20 13:34 Dose: 1,000 mg Documented by: Dexamethasone (Dexamethasone) 6 mg PO ONETIME ONE Stop: 07/06/20 16:25 Last Admin: 07/06/20 16:45 Dose: 6 mg Documented by: Lactated Ringer's (Ringers, Lactated) 1,000 mls @ 1,000 mls/hr IV BOLUS ONE Stop: 07/06/20 13:43 Last Admin: 07/06/20 13:32 Dose: 1,000 mls/hr Documented by: Ceftriaxone Sodium 1 gm/ (Sodium Chloride) 50 mls @ 100 mls/hr IV ONETIME ONE Stop: 07/06/20 15:14 Last Admin: 07/06/20 15:21 Dose: 100 mls/hr Documented by: Sodium Chloride (Normal Saline) 100 mls @ 3.5 mls/sec IV ASDIRECTED [facility] Stop: 07/06/20 18:00 Last Admin: 07/06/20 15:06 Dose: 4 mls/sec Documented by: Remdesivir 200 mg/ Sodium (Chloride) 250 mls @ 250 mls/hr IV ONETIME ONE Stop: 07/06/20 18:59 Last Admin: 07/06/20 17:33 Dose: 250 mls/hr Documented by: Iopamidol (Isovue-370 (76%)) 100 ml IV . DIRECTED [facility] Stop: 07/06/20 14:46 Last Admin: 07/06/20 15:06 Dose: 100 ml Documented by: Lisinopril (Prinivil) 20 mg PO BID [facility] Last Admin: 07/07/20 08:35 Dose: 20 mg Documented by: Sodium Chloride (Saline Flush) 10 ml FLUSH ONETIME ONE Stop: 07/06/20 14:44 Last Admin: 07/06/20 15:06 Dose: 10 ml Documented by: - Exam Quality Assessment: Supplemental Oxygen General: Alert, Oriented, Cooperative, No Acute Distress Lungs: Normal Respiratory Effort, Crackles (few fine crackles at the bases) Cardiovascular: Regular Rate, Regular Rhythm GI/Abdominal Exam: Soft, No Distention Extremities: No Pedal Edema. No: Increased Warmth Skin: Warm, Dry Psy/Mental Status: Alert, Normal Affect Sepsis Event Note - Evaluation Sepsis Screening Result: No Definite Risk - Focused Exam Vital Signs: Vital Signs Temp Pulse Pulse Resp BP BP Pulse Ox 07/09/20 08:14 63 138/66 07/09/20 07:27 94 L 07/09/20 07:15 36.8 C 63 18 138/66 93 L 07/09/20 02:35 36.8 C 64 18 125/62 95 - Problem List & Annotations (1) Pneumonia due to COVID-19 virus SNOMED Code(s): 485580286073373892 Code(s): U07.1 - COVID-19; J12.89 - OTHER VIRAL PNEUMONIA Status: Acute Current Visit: Yes (2) Acute respiratory failure with hypoxia SNOMED Code(s): 17436075, 008823602 Code(s): J96.01 - ACUTE RESPIRATORY FAILURE WITH HYPOXIA Status: Acute Current Visit: Yes (3) Hx pulmonary embolism SNOMED Code(s): 068513943 Code(s): Z86.711 - PERSONAL HISTORY OF PULMONARY EMBOLISM Status: Chronic Current Visit: No (4) Asthma SNOMED Code(s): 959647604 Code(s): J45.909 - UNSPECIFIED ASTHMA, UNCOMPLICATED Status: Chronic Current Visit: No Qualifiers: Asthma severity: mild Asthma persistence: intermittent Asthma complication type: uncomplicated Qualified Code(s): J45.20 - Mild intermittent asthma, uncomplicated (5) History of prostate cancer SNOMED Code(s): 303453032 Code(s): Z85.46 - PERSONAL HISTORY OF MALIGNANT NEOPLASM OF PROSTATE Status: Chronic Current Visit: No - Problem List Review Problem List Initiated/Reviewed/Updated: Yes - My Orders Last 24 Hours: My Active Orders 07/08/20 17:00 Transfuse Fresh Frozen Plasma [COMM] Routine 07/10/20 05:00 C-REACTIVE PROTEIN [CHEM] Timed CBC W/O DIFF,HEMOGRAM [HEME] Timed (1) COMPREHENSIVE METABOLIC PN,CMP [CHEM] Timed D-DIMER QUANTITATIVE [COAG] Timed - Plan Plan:: ASSESSMENT AND PLAN - COVID-19 with bilateral pneumonia-complicated by acute respiratory failure with hypoxia. Tolerating treatment so far. Clinically stable and overall doing fairly well other than his cough. Volume status is appropriate today. -Supplement oxygen -Dexamethasone x5 to 10 days (start 07/06) -Convalescent plasma daily for 3 days (complete) -Remdesivir x5 days (4 of 5) -Enoxaparin daily -Symptomatic management -Isolation precautions Mild intermittent asthma-no evidence for exacerbation at this time. -Management as above History of PE-not currently anticoagulated. Hypertension-blood pressure acceptable. -Continue home meds History of prostate cancer Maintenance issues - - DVT prophylaxis -enoxaparin - GI prophylaxis -not indicated - Nutrition -regular diet Disposition -I would anticipate discharge home after the hospital stay Smith Childers M.D.
[2020-07-09] MEDS: REMDESIVIR 100 MG in Sodium Chloride 0.9% 100 ML IV SCH (16:17)
[2020-07-09] MEDS: Dexamethasone 2 MG Tab PO SCH (17:34)
[2020-07-09] MEDS: Enoxaparin 40 MG/0.4 ML Syringe SUBCUT SCH (17:35)
[2020-07-10] MEDS: Hydrochlorothiazide 12.5 MG Cap PO SCH (08:20)
[2020-07-10] MEDS: Aspirin 81 MG Tab.Chew PO SCH (08:21)
[2020-07-10] MEDS: Carvedilol 12.5 MG Tab PO SCH ×2 (08:21→20:56)
[2020-07-10] MEDS: Levothyroxine 25 MCG, Levothyroxine 50 MCG PO SCH ×2 (08:21)
[2020-07-10] MEDS: Lisinopril 20 MG Tab PO SCH ×2 (08:21→20:57)
[2020-07-10] MEDS: Spironolactone 25 MG Tab PO SCH (08:21)
--- NOTE | 2020-07-10 11:51 | PCM.PN ---
- General Info Date of Service: 07/10/20 Subjective Update: No acute events overnight. Shortness of breath is better today. Cough is a little bit more loose. He is down to 2 L of oxygen. He has not had any fevers. He does get winded with more than minimal activity but this is a little better. He is recovering faster. Inflammatory markers have improved since admission. Appetite has been good. Tolerating dexamethasone, remdesivir and plasma treatment. Functional Status: Reports: Pain Controlled, Tolerating Diet - Review of Systems General: Denies: Fever Pulmonary: Reports: Shortness of Breath, Cough - Patient Data Vitals - Most Recent: Last Vital Signs Temp 36.8 C 07/10/20 10:38 Pulse 67 07/10/20 10:38 Resp 18 07/10/20 10:38 BP 107/56 L 07/10/20 10:38 Pulse Ox 96 07/10/20 10:38 Weight - Most Recent: 133.81 kg I&O - Last 24 Hours: Intake & Output 07/09/20 07/10/20 07/10/20 22:59 06:59 14:59 Intake Total 240 Balance 240 Lab Results Last 24 Hours: Laboratory Results - last 24 hr 07/10/20 07/10/20 07/10/20 Range/Units 04:10 04:10 04:10 WBC 5.2 (4.5-11.0) K/uL RBC 4.02 L (4.30-5.90) M/uL Hgb 11.8 L (12.0-15.0) g/dL Hct 37.3 L (40.0-54.0) % MCV 93 (80-98) fL MCH 29 (27-31) pg MCHC 32 (32-36) % Plt Count 310 (150-400) K/uL D-Dimer, Quantitative 675.44 H (0.0-500.0) ng/mL Sodium 135 L (140-148) mmol/L Potassium 5.0 (3.6-5.2) mmol/L Chloride 99 L (100-108) mmol/L Carbon Dioxide 24 (21-32) mmol/L Anion Gap 17.0 H (5.0-14.0) mmol/L BUN 31 H (7-18) mg/dL Creatinine 1.2 (0.8-1.3) mg/dL Est Cr Clr Drug Dosing 57.59 mL/min Estimated GFR (MDRD) 60 (>60) Glucose 152 H (74-106) mg/dL Calcium 8.9 (8.5-10.1) mg/dL Total Bilirubin 0.3 (0.2-1.0) mg/dL AST 24 (15-37) U/L ALT 33 (12-78) U/L Alkaline Phosphatase 42 L (46-116) U/L C-Reactive Protein 2.98 H (0.0-0.3) mg/dL Total Protein 6.6 (6.4-8.2) g/dL Albumin 2.8 L (3.4-5.0) g/dL Globulin 3.8 H (2.3-3.5) g/dL Albumin/Globulin Ratio 0.7 L (1.2-2.2) Adolph Results Last 24 Hours: Microbiology 07/06/20 13:00 Aerobic Blood Culture - Preliminary Blood - Arm, Right NO GROWTH AFTER 3 DAYS Anaerobic Blood Culture - Preliminary NO GROWTH AFTER 3 DAYS 07/06/20 12:50 Aerobic Blood Culture - Preliminary Blood - Venous - Iv Start NO GROWTH AFTER 3 DAYS Anaerobic Blood Culture - Preliminary NO GROWTH AFTER 3 DAYS Med Orders - Current: Current Medications Acetaminophen (Tylenol) 650 mg PO Q4H PRN PRN Reason: Pain (Mild 1-3)/fever Aspirin (Aspirin) 162 mg PO DAILY [facility] Last Admin: 07/10/20 08:21 Dose: 162 mg Documented by: Benzonatate (Tessalon Perles) 100 mg PO TID PRN PRN Reason: Cough Carvedilol (Coreg) 25 mg PO BID [facility] Last Admin: 07/10/20 08:21 Dose: 25 mg Documented by: Dexamethasone (Dexamethasone) 6 mg PO Q24H [facility] Last Admin: 07/09/20 17:34 Dose: 6 mg Documented by: Enoxaparin Sodium (Lovenox) 40 mg SUBCUT Q24H [facility] Last Admin: 07/09/20 17:35 Dose: 40 mg Documented by: Guaifenesin/Dextromethorphan (Robitussin Dm) 10 ml PO Q4H PRN PRN Reason: Cough Hydrochlorothiazide (Hydrochlorothiazide) 12.5 mg PO DAILY [facility] Last Admin: 07/10/20 08:20 Dose: 12.5 mg Documented by: Remdesivir 100 mg/ Sodium (Chloride) 100 mls @ 100 mls/hr IV Q24H [facility] Stop: 07/10/20 17:59 Last Admin: 07/09/20 16:17 Dose: 100 mls/hr Documented by: Levothyroxine Sodium 25 mcg/ (Levothyroxine Sodium 50 mcg) 75 mcg PO ACBREAKFAST [facility] Last Admin: 07/10/20 08:21 Dose: 75 mcg Documented by: Lisinopril (Prinivil) 20 mg PO BID [facility] Last Admin: 07/10/20 08:21 Dose: 20 mg Documented by: Magnesium Hydroxide (Milk Of Magnesia) 30 ml PO Q12H PRN PRN Reason: Constipation Melatonin (Melatonin) 9 mg PO BEDTIME PRN PRN Reason: Sleep Ondansetron HCl (Zofran) 4 mg IV Q6H PRN PRN Reason: Nausea/Vomiting Ondansetron HCl (Zofran Odt) 4 mg PO Q6H PRN PRN Reason: Nausea able to take PO Promethazine HCl (Phenergan) 25 mg PO Q6H PRN PRN Reason: Nausea able to take PO Senna/Docusate Sodium (Senna Plus) 1 tab PO BID PRN PRN Reason: Constipation Spironolactone (Aldactone) 12.5 mg PO DAILY [facility] Last Admin: 07/10/20 08:21 Dose: 12.5 mg Documented by: Discontinued Medications Acetaminophen (Tylenol Extra Strength) 1,000 mg PO ONETIME ONE Stop: 07/06/20 12:48 Last Admin: 07/06/20 13:34 Dose: 1,000 mg Documented by: Dexamethasone (Dexamethasone) 6 mg PO ONETIME ONE Stop: 07/06/20 16:25 Last Admin: 07/06/20 16:45 Dose: 6 mg Documented by: Lactated Ringer's (Ringers, Lactated) 1,000 mls @ 1,000 mls/hr IV BOLUS ONE Stop: 07/06/20 13:43 Last Admin: 07/06/20 13:32 Dose: 1,000 mls/hr Documented by: Ceftriaxone Sodium 1 gm/ (Sodium Chloride) 50 mls @ 100 mls/hr IV ONETIME ONE Stop: 07/06/20 15:14 Last Admin: 07/06/20 15:21 Dose: 100 mls/hr Documented by: Sodium Chloride (Normal Saline) 100 mls @ 3.5 mls/sec IV ASDIRECTED [facility] Stop: 07/06/20 18:00 Last Admin: 07/06/20 15:06 Dose: 4 mls/sec Documented by: Remdesivir 200 mg/ Sodium (Chloride) 250 mls @ 250 mls/hr IV ONETIME ONE Stop: 07/06/20 18:59 Last Admin: 07/06/20 17:33 Dose: 250 mls/hr Documented by: Iopamidol (Isovue-370 (76%)) 100 ml IV . DIRECTED [facility] Stop: 07/06/20 14:46 Last Admin: 07/06/20 15:06 Dose: 100 ml Documented by: Lisinopril (Prinivil) 20 mg PO BID [facility] Last Admin: 07/07/20 08:35 Dose: 20 mg Documented by: Sodium Chloride (Saline Flush) 10 ml FLUSH ONETIME ONE Stop: 07/06/20 14:44 Last Admin: 07/06/20 15:06 Dose: 10 ml Documented by: - Exam Quality Assessment: Supplemental Oxygen General: Alert, Oriented, Cooperative, No Acute Distress Lungs: Normal Respiratory Effort, Crackles (fine crackles both lower lungs) Cardiovascular: Regular Rate, Regular Rhythm GI/Abdominal Exam: Soft, No Distention Extremities: No Pedal Edema. No: Increased Warmth Skin: Warm, Dry Psy/Mental Status: Alert, Normal Affect Sepsis Event Note - Evaluation Sepsis Screening Result: No Definite Risk - Focused Exam Vital Signs: Vital Signs Temp Pulse Pulse Resp BP BP Pulse Ox 07/10/20 10:38 36.8 C 67 18 107/56 L 96 07/10/20 08:21 68 130/68 07/10/20 08:18 36.8 C 68 18 130/68 92 L 07/10/20 07:38 92 L 07/10/20 03:39 36.8 C 65 18 130/65 96 07/10/20 01:00 94 L - Problem List & Annotations (1) Pneumonia due to COVID-19 virus SNOMED Code(s): 957956837647488396 Code(s): U07.1 - COVID-19; J12.89 - OTHER VIRAL PNEUMONIA Status: Acute Current Visit: Yes (2) Acute respiratory failure with hypoxia SNOMED Code(s): 82802371, 798913449 Code(s): J96.01 - ACUTE RESPIRATORY FAILURE WITH HYPOXIA Status: Acute Current Visit: Yes (3) Hx pulmonary embolism SNOMED Code(s): 714403821 Code(s): Z86.711 - PERSONAL HISTORY OF PULMONARY EMBOLISM Status: Chronic Current Visit: No (4) Asthma SNOMED Code(s): 289156550 Code(s): J45.909 - UNSPECIFIED ASTHMA, UNCOMPLICATED Status: Chronic Current Visit: No Qualifiers: Asthma severity: mild Asthma persistence: intermittent Asthma complication type: uncomplicated Qualified Code(s): J45.20 - Mild intermittent asthma, uncomplicated (5) History of prostate cancer SNOMED Code(s): 098514772 Code(s): Z85.46 - PERSONAL HISTORY OF MALIGNANT NEOPLASM OF PROSTATE Status: Chronic Current Visit: No - Problem List Review Problem List Initiated/Reviewed/Updated: Yes - My Orders Last 24 Hours: My Active Orders 07/11/20 05:00 COMPREHENSIVE METABOLIC PN,CMP [CHEM] Timed - Plan Plan:: ASSESSMENT AND PLAN - COVID-19 with bilateral pneumonia-complicated by acute respiratory failure with hypoxia. Tolerating treatment so far. Clinically looking and feeling better. Down to 2 L of oxygen today. D-dimer and CRP have improved since admission. -Supplement oxygen -Dexamethasone x10 days (start 07/06) -Convalescent plasma daily for 3 days (complete) -Remdesivir x5 days (5 of 5) -Enoxaparin daily -Hepatic panel daily, D-dimer and CRP every other day -Symptomatic management -Isolation precautions Mild intermittent asthma-no evidence for exacerbation at this time. -Management as above History of PE-not currently anticoagulated. Hypertension-blood pressure acceptable. -Continue home meds History of prostate cancer Maintenance issues - - DVT prophylaxis -enoxaparin - GI prophylaxis -not indicated - Nutrition -regular diet Disposition -I would anticipate discharge home after the hospital stay mSith Childers M.D.
[2020-07-10] MEDS: REMDESIVIR 100 MG in Sodium Chloride 0.9% 100 ML IV SCH (16:25)
[2020-07-10] MEDS: Dexamethasone 2 MG Tab PO SCH (17:13)
[2020-07-10] MEDS: Enoxaparin 40 MG/0.4 ML Syringe SUBCUT SCH (17:13)
[2020-07-11] MEDS: Levothyroxine 25 MCG, Levothyroxine 50 MCG PO SCH ×2 (07:40)
[2020-07-11] MEDS: Spironolactone 25 MG Tab PO SCH (08:46)
[2020-07-11] MEDS: Carvedilol 12.5 MG Tab PO SCH ×2 (08:46→20:30)
[2020-07-11] MEDS: Aspirin 81 MG Tab.Chew PO SCH (08:46)
[2020-07-11] MEDS: Hydrochlorothiazide 12.5 MG Cap PO SCH (08:46)
[2020-07-11] MEDS: Lisinopril 20 MG Tab PO SCH ×2 (08:55→20:29)
[2020-07-11] MEDS ORDERED: Bacitracin Oint 28.35 GM Tube TOP PRN (10:57)
[2020-07-11] MEDS ORDERED: Bacitracin Oint 28.35 GM Tube TOP SCH (14:00)
[2020-07-11] MEDS: Enoxaparin 40 MG/0.4 ML Syringe SUBCUT SCH (17:09)
[2020-07-11] MEDS: Dexamethasone 2 MG Tab PO SCH (17:09)
--- NOTE | 2020-07-11 18:06 | PCM.PN ---
- General Info Date of Service: 07/11/20 Subjective Update: Mr. Borrego continued to show improvement over the last 24 hours with less shortness of breath and cough. Continues to require supplemental oxygen at 2 L/min via nasal cannula. Overall strength and energy level as well as appetite seem to be improving. Functional Status: Reports: Tolerating Diet, Ambulating, Urinating - Review of Systems General: Reports: Weakness, Fatigue. Denies: Fever, Chills Pulmonary: Reports: Shortness of Breath, Cough. Denies: Pleuritic Chest Pain, Sputum, Hemoptysis, Wheezing Cardiovascular: Reports: Dyspnea on Exertion. Denies: Chest Pain, Palpitations, Orthopnea, PND, Edema, Lightheadedness Gastrointestinal: Reports: No Symptoms - Patient Data Vitals - Most Recent: Last Vital Signs Temp 97.4 F 07/11/20 14:16 Pulse 67 07/11/20 14:16 Resp 18 07/11/20 14:16 BP 98/50 L 07/11/20 14:16 Pulse Ox 95 07/11/20 14:16 Weight - Most Recent: 295 lb 0.009 oz I&O - Last 24 Hours: Intake & Output 07/11/20 07/11/20 07/11/20 06:59 14:59 22:59 Intake Total 836 296 Balance 836 296 Lab Results Last 24 Hours: Laboratory Results - last 24 hr 07/11/20 Range/Units 05:00 Sodium 134 L (140-148) mmol/L Potassium 5.1 (3.6-5.2) mmol/L Chloride 99 L (100-108) mmol/L Carbon Dioxide 28 (21-32) mmol/L Anion Gap 12.1 (5.0-14.0) mmol/L BUN 38 H (7-18) mg/dL Creatinine 1.3 (0.8-1.3) mg/dL Est Cr Clr Drug Dosing 53.16 mL/min Estimated GFR (MDRD) 54 L (>60) Glucose 157 H (74-106) mg/dL Calcium 8.9 (8.5-10.1) mg/dL Total Bilirubin 0.3 (0.2-1.0) mg/dL AST 16 (15-37) U/L ALT 35 (12-78) U/L Alkaline Phosphatase 40 L (46-116) U/L Total Protein 6.4 (6.4-8.2) g/dL Albumin 2.7 L (3.4-5.0) g/dL Globulin 3.7 H (2.3-3.5) g/dL Albumin/Globulin Ratio 0.7 L (1.2-2.2) Adolph Results Last 24 Hours: Microbiology 07/06/20 12:50 Aerobic Blood Culture - Final Blood - Venous - Iv Start NO GROWTH AFTER 5 DAYS Anaerobic Blood Culture - Final NO GROWTH AFTER 5 DAYS 07/06/20 13:00 Aerobic Blood Culture - Final Blood - Arm, Right NO GROWTH AFTER 5 DAYS Anaerobic Blood Culture - Final NO GROWTH AFTER 5 DAYS Med Orders - Current: Current Medications Acetaminophen (Tylenol) 650 mg PO Q4H PRN PRN Reason: Pain (Mild 1-3)/fever Aspirin (Aspirin) 162 mg PO DAILY [facility] Last Admin: 07/11/20 08:46 Dose: 162 mg Documented by: Bacitracin (Bacitracin Oint) 0 gm TOP TID PRN PRN Reason: for arm abrasion Last Admin: 07/11/20 11:46 Dose: 1 applic Documented by: Benzonatate (Tessalon Perles) 100 mg PO TID PRN PRN Reason: Cough Carvedilol (Coreg) 25 mg PO BID [facility] Last Admin: 07/11/20 08:46 Dose: 25 mg Documented by: Dexamethasone (Dexamethasone) 6 mg PO Q24H [facility] Last Admin: 07/11/20 17:09 Dose: 6 mg Documented by: Enoxaparin Sodium (Lovenox) 40 mg SUBCUT Q24H [facility] Last Admin: 07/11/20 17:09 Dose: 40 mg Documented by: Guaifenesin/Dextromethorphan (Robitussin Dm) 10 ml PO Q4H PRN PRN Reason: Cough Hydrochlorothiazide (Hydrochlorothiazide) 12.5 mg PO DAILY [facility] Last Admin: 07/11/20 08:46 Dose: 12.5 mg Documented by: Levothyroxine Sodium 25 mcg/ (Levothyroxine Sodium 50 mcg) 75 mcg PO ACBREAKFAST [facility] Last Admin: 07/11/20 07:40 Dose: 75 mcg Documented by: Lisinopril (Prinivil) 20 mg PO BID [facility] Last Admin: 07/11/20 08:55 Dose: 20 mg Documented by: Magnesium Hydroxide (Milk Of Magnesia) 30 ml PO Q12H PRN PRN Reason: Constipation Melatonin (Melatonin) 9 mg PO BEDTIME PRN PRN Reason: Sleep Ondansetron HCl (Zofran) 4 mg IV Q6H PRN PRN Reason: Nausea/Vomiting Ondansetron HCl (Zofran Odt) 4 mg PO Q6H PRN PRN Reason: Nausea able to take PO Promethazine HCl (Phenergan) 25 mg PO Q6H PRN PRN Reason: Nausea able to take PO Senna/Docusate Sodium (Senna Plus) 1 tab PO BID PRN PRN Reason: Constipation Spironolactone (Aldactone) 12.5 mg PO DAILY [facility] Last Admin: 07/11/20 08:46 Dose: 12.5 mg Documented by: Discontinued Medications Acetaminophen (Tylenol Extra Strength) 1,000 mg PO ONETIME ONE Stop: 07/06/20 12:48 Last Admin: 07/06/20 13:34 Dose: 1,000 mg Documented by: Bacitracin (Bacitracin Oint) 1 gm TOP TID [facility] Dexamethasone (Dexamethasone) 6 mg PO ONETIME ONE Stop: 07/06/20 16:25 Last Admin: 07/06/20 16:45 Dose: 6 mg Documented by: Lactated Ringer's (Ringers, Lactated) 1,000 mls @ 1,000 mls/hr IV BOLUS ONE Stop: 07/06/20 13:43 Last Admin: 07/06/20 13:32 Dose: 1,000 mls/hr Documented by: Ceftriaxone Sodium 1 gm/ (Sodium Chloride) 50 mls @ 100 mls/hr IV ONETIME ONE Stop: 07/06/20 15:14 Last Admin: 07/06/20 15:21 Dose: 100 mls/hr Documented by: Sodium Chloride (Normal Saline) 100 mls @ 3.5 mls/sec IV ASDIRECTED [facility] Stop: 07/06/20 18:00 Last Admin: 07/06/20 15:06 Dose: 4 mls/sec Documented by: Remdesivir 200 mg/ Sodium (Chloride) 250 mls @ 250 mls/hr IV ONETIME ONE Stop: 07/06/20 18:59 Last Admin: 07/06/20 17:33 Dose: 250 mls/hr Documented by: Remdesivir 100 mg/ Sodium (Chloride) 100 mls @ 100 mls/hr IV Q24H [facility] Stop: 07/10/20 17:59 Last Admin: 07/10/20 16:25 Dose: 100 mls/hr Documented by: Iopamidol (Isovue-370 (76%)) 100 ml IV . DIRECTED [facility] Stop: 07/06/20 14:46 Last Admin: 07/06/20 15:06 Dose: 100 ml Documented by: Lisinopril (Prinivil) 20 mg PO BID [facility] Last Admin: 07/07/20 08:35 Dose: 20 mg Documented by: Sodium Chloride (Saline Flush) 10 ml FLUSH ONETIME ONE Stop: 07/06/20 14:44 Last Admin: 07/06/20 15:06 Dose: 10 ml Documented by: - Exam Quality Assessment: DVT Prophylaxis General: Alert, Oriented, Cooperative, Mild Distress Lungs: Normal Respiratory Effort, Rales. No: Crackles, Rhonchi, Wheezing Cardiovascular: Regular Rate, Regular Rhythm, No Murmurs GI/Abdominal Exam: Soft, Non-Tender, No Organomegaly, No Distention Extremities: Non-Tender, No Pedal Edema Sepsis Event Note - Evaluation Sepsis Screening Result: No Definite Risk - Focused Exam Vital Signs: Vital Signs Temp Pulse Pulse Resp BP BP Pulse Ox 07/11/20 14:16 97.4 F 67 18 98/50 L 95 07/11/20 12:28 93 L 07/11/20 10:41 97.2 F 62 18 105/49 L 98 07/11/20 08:55 136/68 07/11/20 08:46 69 136/68 07/11/20 07:14 96 07/11/20 07:00 97.4 F 57 L 18 136/68 95 - Problem List Review Problem List Initiated/Reviewed/Updated: Yes - My Orders Last 24 Hours: My Active Orders 07/11/20 10:57 Bacitracin [Bacitracin Oint] 0 gm TOP TID PRN 07/11/20 12:50 RT Evaluate for Home Oxygen [RC] Click to Edit 07/12/20 05:00 BASIC METABOLIC PANEL,BMP [CHEM] Timed - Plan Plan:: ASSESSMENT AND PLAN - COVID-19 with bilateral pneumonia-complicated by acute respiratory failure with hypoxia. Tolerating treatment so far. Clinically looking and feeling better. Down to 2 L of oxygen today. -Supplement oxygen -Dexamethasone x10 days (start 07/06) -Convalescent plasma daily for 3 days (complete) -Remdesivir x5 days, completed -Enoxaparin daily -Symptomatic management -Isolation precautions Mild intermittent asthma-no evidence for exacerbation at this time. -Management as above History of PE-not currently anticoagulated. Hypertension-blood pressure acceptable. -Continue home meds History of prostate cancer Maintenance issues - - DVT prophylaxis -enoxaparin - GI prophylaxis -not indicated - Nutrition -regular diet Disposition -I would anticipate discharge home after the hospital stay
[2020-07-12 07:59] VITALS: BP 121/60; PULSE 61
[2020-07-12] MEDS: Levothyroxine 25 MCG, Levothyroxine 50 MCG PO SCH ×2 (08:02)
[2020-07-12] MEDS: Aspirin 81 MG Tab.Chew PO SCH (08:03)
[2020-07-12] MEDS: Lisinopril 20 MG Tab PO SCH (08:03)
[2020-07-12] MEDS: Carvedilol 12.5 MG Tab PO SCH (08:03)
[2020-07-12] MEDS: Spironolactone 25 MG Tab PO SCH (08:03)
[2020-07-12] MEDS: Hydrochlorothiazide 12.5 MG Cap PO SCH (08:04)
--- NOTE | 2020-07-12 12:10 | PCM.DCSUM1 ---
Discharge Summary - Hospital Course Brief History: Mr. Borrego is a 70-year-old gentleman who was admitted through the emergency department with shortness of breath and hypoxia secondary to COVID-19 and bilateral pneumonia. - Discharge Data Discharge Date: 07/12/20 Discharge Disposition: Home, Self-Care 01 Condition: Fair - Referral to Home Health Primary Care Physician: PCP None - Discharge Diagnosis/Problem(s) (1) COVID-19 SNOMED Code(s): 251661456 ICD Code: U07.1 - COVID-19 Status: Acute Current Visit: Yes (2) Pneumonia due to COVID-19 virus SNOMED Code(s): 531065875452406752 ICD Code: U07.1 - COVID-19; J12.89 - OTHER VIRAL PNEUMONIA Status: Acute Current Visit: Yes (3) Acute respiratory failure with hypoxia SNOMED Code(s): 10181314, 198760589 ICD Code: J96.01 - ACUTE RESPIRATORY FAILURE WITH HYPOXIA Status: Acute Current Visit: Yes - Patient Summary/Data Hospital Course: Mr. Borrego presented to the emergency room with progressive cough, shortness of breath, weakness and fatigue. He has not felt well for the last 12 days. He was seen in the emergency room on June 24 and was diagnosed with right lower lung pneumonia and started on azithromycin. His Covid testing at that time was negative. Initially he started to feel better but then over the last 10 days or so his symptoms have slowly progressed. He reports mild intermittent headaches, off and on fevers at home as well as significant fatigue and anorexia. He has not been able to eat or drink much because of nausea and occasional vomiting. He feels short of breath with even minimal activity. His coughing and shortness of breath have steadily been getting worse over the past 4 days or so. He is not aware of any sick contacts and other than the trip to the emergency room 12 days ago has not really had any contact that he is aware of. His is not sick. He has not traveled. Work-up in the emergency room revealed fairly reassuring laboratory studies. COVID-19 testing was positive. The patient is hypoxic and requiring 2 L of supplemental oxygen. He was admitted to the Covid unit for further management. Admission fluids were limited and he was started on treatment for COVID-19 with remdesivir, Decadron, and convalescent plasma. Respiratory status did worsen and he required increased levels of supplemental oxygen. Following this he slowly improved and was on room air at the time of discharge but did desaturate to 87% with activity. He was treated with enoxaparin throughout his hospital stay and will be discharged home with an additional 7-day course. He will be discharged with supplemental oxygen 2 L/min via nasal cannula. Activity will be as tolerated and he will resume his usual diet. Follow-up appointment will be scheduled with his primary care provider within 1 week. - Patient Instructions Diet: Usual Diet as Tolerated Activity: As Tolerated Other/Special Instructions: Please discharged home with home oxygen 2 L/min via nasal cannula. Please schedule follow-up appointment with primary care provider within 1 week. - Discharge Plan *PRESCRIPTION DRUG MONITORING PROGRAM REVIEWED*: Not Applicable *COPY OF PRESCRIPTION DRUG MONITORING REPORT IN PATIENT NAKUL: Not Applicable Prescriptions/Med Rec: Enoxaparin [Lovenox] 40 mg SUBCUT Q24H #7 syringe Home Medications: Home Meds Carvedilol [Coreg] 25 mg PO BID 02/06/15 [History] Hydrochlorothiazide 12.5 mg PO DAILY 02/06/15 [History] Levothyroxine 75 mcg PO ACBREAKFAST 02/06/15 [History] Lisinopril 20 mg PO BID 02/06/15 [History] Spironolactone [Aldactone] 12.5 mg PO DAILY 02/06/15 [History] Aspirin 162 mg PO DAILY 01/21/17 [History] Albuterol [Ventolin HFA] 1 puff INH ASDIRECTED 07/06/20 [History] Clotrimazole [Jock Itch] 15 gm TP PRN 07/09/20 [History] Enoxaparin [Lovenox] 40 mg SUBCUT Q24H #7 syringe 07/12/20 [Rx] Referrals: Cony Hunter PA-C [Physician Virtual Classroom Manager] - 07/19/20 10:45 am (Please arrive 15 minutes early to register for your appointment. ) - Discharge Summary/Plan Comment DC Time >30 min.: No - Patient Data Vitals - Most Recent: Last Vital Signs Temp 97.5 F 07/12/20 07:00 Pulse 61 07/12/20 08:03 Resp 16 07/12/20 07:00 BP 121/60 07/12/20 08:03 Pulse Ox 94 L 07/12/20 07:22 Weight - Most Recent: 295 lb 0.009 oz I&O - Last 24 hours: Intake & Output 07/11/20 07/12/20 07/12/20 22:59 06:59 14:59 Intake Total 896 240 Balance 896 240 Lab Results - Last 24 hrs: Laboratory Results - last 24 hr 07/12/20 Range/Units 06:10 Sodium 133 L (140-148) mmol/L Potassium 5.2 (3.6-5.2) mmol/L Chloride 98 L (100-108) mmol/L Carbon Dioxide 28 (21-32) mmol/L Anion Gap 12.2 (5.0-14.0) mmol/L BUN 38 H (7-18) mg/dL Creatinine 1.3 (0.8-1.3) mg/dL Est Cr Clr Drug Dosing 53.16 mL/min Estimated GFR (MDRD) 54 L (>60) Glucose 172 H (74-106) mg/dL Calcium 9.1 (8.5-10.1) mg/dL STEVIE Results - Last 24 hrs: Microbiology 07/06/20 12:50 Aerobic Blood Culture - Final Blood - Venous - Iv Start NO GROWTH AFTER 5 DAYS Anaerobic Blood Culture - Final NO GROWTH AFTER 5 DAYS 07/06/20 13:00 Aerobic Blood Culture - Final Blood - Arm, Right NO GROWTH AFTER 5 DAYS Anaerobic Blood Culture - Final NO GROWTH AFTER 5 DAYS Med Orders - Current: Current Medications Acetaminophen (Tylenol) 650 mg PO Q4H PRN PRN Reason: Pain (Mild 1-3)/fever Aspirin (Aspirin) 162 mg PO DAILY [facility] Last Admin: 07/12/20 08:03 Dose: 162 mg Documented by: Bacitracin (Bacitracin Oint) 0 gm TOP TID PRN PRN Reason: for arm abrasion Last Admin: 07/11/20 11:46 Dose: 1 applic Documented by: Benzonatate (Tessalon Perles) 100 mg PO TID PRN PRN Reason: Cough Carvedilol (Coreg) 25 mg PO BID [facility] Last Admin: 07/12/20 08:03 Dose: 25 mg Documented by: Dexamethasone (Dexamethasone) 6 mg PO Q24H [facility] Last Admin: 07/11/20 17:09 Dose: 6 mg Documented by: Enoxaparin Sodium (Lovenox) 40 mg SUBCUT Q24H [facility] Last Admin: 07/11/20 17:09 Dose: 40 mg Documented by: Guaifenesin/Dextromethorphan (Robitussin Dm) 10 ml PO Q4H PRN PRN Reason: Cough Hydrochlorothiazide (Hydrochlorothiazide) 12.5 mg PO DAILY [facility] Last Admin: 07/12/20 08:04 Dose: 12.5 mg Documented by: Levothyroxine Sodium 25 mcg/ (Levothyroxine Sodium 50 mcg) 75 mcg PO ACBREAKFAST [facility] Last Admin: 07/12/20 08:02 Dose: 75 mcg Documented by: Lisinopril (Prinivil) 20 mg PO BID [facility] Last Admin: 07/12/20 08:03 Dose: 20 mg Documented by: Magnesium Hydroxide (Milk Of Magnesia) 30 ml PO Q12H PRN PRN Reason: Constipation Melatonin (Melatonin) 9 mg PO BEDTIME PRN PRN Reason: Sleep Ondansetron HCl (Zofran) 4 mg IV Q6H PRN PRN Reason: Nausea/Vomiting Ondansetron HCl (Zofran Odt) 4 mg PO Q6H PRN PRN Reason: Nausea able to take PO Promethazine HCl (Phenergan) 25 mg PO Q6H PRN PRN Reason: Nausea able to take PO Senna/Docusate Sodium (Senna Plus) 1 tab PO BID PRN PRN Reason: Constipation Spironolactone (Aldactone) 12.5 mg PO DAILY [facility] Last Admin: 07/12/20 08:03 Dose: 12.5 mg Documented by: Discontinued Medications Acetaminophen (Tylenol Extra Strength) 1,000 mg PO ONETIME ONE Stop: 07/06/20 12:48 Last Admin: 07/06/20 13:34 Dose: 1,000 mg Documented by: Bacitracin (Bacitracin Oint) 1 gm TOP TID [facility] Dexamethasone (Dexamethasone) 6 mg PO ONETIME ONE Stop: 07/06/20 16:25 Last Admin: 07/06/20 16:45 Dose: 6 mg Documented by: Lactated Ringer's (Ringers, Lactated) 1,000 mls @ 1,000 mls/hr IV BOLUS ONE Stop: 07/06/20 13:43 Last Admin: 07/06/20 13:32 Dose: 1,000 mls/hr Documented by: Ceftriaxone Sodium 1 gm/ (Sodium Chloride) 50 mls @ 100 mls/hr IV ONETIME ONE Stop: 07/06/20 15:14 Last Admin: 07/06/20 15:21 Dose: 100 mls/hr Documented by: Sodium Chloride (Normal Saline) 100 mls @ 3.5 mls/sec IV ASDIRECTED [facility] Stop: 07/06/20 18:00 Last Admin: 07/06/20 15:06 Dose: 4 mls/sec Documented by: Remdesivir 200 mg/ Sodium (Chloride) 250 mls @ 250 mls/hr IV ONETIME ONE Stop: 07/06/20 18:59 Last Admin: 07/06/20 17:33 Dose: 250 mls/hr Documented by: Remdesivir 100 mg/ Sodium (Chloride) 100 mls @ 100 mls/hr IV Q24H [facility] Stop: 07/10/20 17:59 Last Admin: 07/10/20 16:25 Dose: 100 mls/hr Documented by: Iopamidol (Isovue-370 (76%)) 100 ml IV . DIRECTED [facility] Stop: 07/06/20 14:46 Last Admin: 07/06/20 15:06 Dose: 100 ml Documented by: Lisinopril (Prinivil) 20 mg PO BID [facility] Last Admin: 07/07/20 08:35 Dose: 20 mg Documented by: Sodium Chloride (Saline Flush) 10 ml FLUSH ONETIME ONE Stop: 07/06/20 14:44 Last Admin: 07/06/20 15:06 Dose: 10 ml Documented by: - Exam General: Reports: Alert, Oriented, Cooperative, Mild Distress Lungs: Reports: Clear to Auscultation, Normal Respiratory Effort Cardiovascular: Reports: Regular Rate, Regular Rhythm, No Murmurs GI/Abdominal Exam: Soft, Non-Tender, No Organomegaly, No Distention Extremities: Non-Tender, No Pedal Edema
== END 2020-07-12 13:25 | disposition home or self-care (01) | DRG 177 ==
LOC: JP.ED 11:53 → JP.2SS 16:25
PROVIDERS: ADMIT Internal Medicine; ATTEND Hospitalist
PROC: 8E0ZXY6 Isolation (ICD-10-PCS; principal; 2020-07-06)
PROC: 30233K1 Transfusion of Nonautologous Frozen Plasma into Peripheral Vein, Percutaneous Approach (ICD-10-PCS; 2020-07-06)
PROC: XW033E5 Introduction of Remdesivir Anti-infective into Peripheral Vein, Percutaneous Approach, New Technology Group 5 (ICD-10-PCS; 2020-07-06)
PROC: XW13325 Transfusion of Convalescent Plasma (Nonautologous) into Peripheral Vein, Percutaneous Approach, New Technology Group 5 (ICD-10-PCS; 2020-07-07)
DX: U07.1 COVID-19 (principal); J18.9 Pneumonia, unspecified organism; R09.02 Hypoxemia; J12.89 Other viral pneumonia; J96.01 Acute respiratory failure with hypoxia; E03.9 Hypothyroidism, unspecified; J45.20 Mild intermittent asthma, uncomplicated; I10 Essential (primary) hypertension; J45.909 Unspecified asthma, uncomplicated; M92.529 Juvenile osteochondrosis of tibia tubercle, unspecified leg; Z99.81 Dependence on supplemental oxygen; Z88.8 Allergy status to other drugs, medicaments and biological substances; Z79.82 Long term (current) use of aspirin; Z79.890 Hormone replacement therapy; Z79.899 Other long term (current) drug therapy; Z90.49 Acquired absence of other specified parts of digestive tract; Z86.711 Personal history of pulmonary embolism; Z85.46 Personal history of malignant neoplasm of prostate
CPT/HCPCS: 36415; 71046 ×2; 71275 ×2; 80048; 83605; 83615; 85027; 85379; 87040 ×2; 96365; 99285 ×2; A9270; J0696; J7120; Q9967; U0002; 36430; 80053; 81001; 86140; 86900; 86901; 94762; J1650; J7050; J8540; P9017

== ENCOUNTER 2021-01-23 10:10 | Emergency (ER) | payer MEDICARE, OTHER ==
[2021-01-23 10:53] VITALS: BP 130/51; PULSE 69
[2021-01-23] MEDS ORDERED: Bacitracin Oint 1 GM U/D Packet TOP ONE (11:00)
--- NOTE | 2021-01-23 11:23 | EDM.PDOC ---
ED HPI GENERAL MEDICAL PROBLEM - General Chief Complaint: Upper Extremity Injury/Pain Stated Complaint: INFECTED POINTER FINGER LEFT HAND Time Seen by Provider: 01/23/21 10:55 Source of Information: Reports: Patient History Limitations: Reports: No Limitations - History of Present Illness INITIAL COMMENTS - FREE TEXT/NARRATIVE: 70-year-old male with a painful swollen erythematous area on the distal aspect of the index finger on the left hand. It is been worsening for 4 days, there is now an area of white on the apex of the swelling that appears to be pustular, is very tender. It starts distal to the PIP joint near the DIP joint of the index finger at the base of the nail. Onset: Gradual Duration: Day(s): (4 days) Location: Reports: Upper Extremity, Left Associated Symptoms: Reports: No Other Symptoms Left Finger-Index Pain Score (Numeric/FACES): 8 - Related Data Allergies Allergy/AdvReac Type Severity Reaction Status Date / Time enteric coted med Allergy Swelling Uncoded 01/23/21 10:32 Home Meds: Home Meds Carvedilol [Coreg] 25 mg PO BID 02/06/15 [History] Hydrochlorothiazide 12.5 mg PO DAILY 02/06/15 [History] Levothyroxine 75 mcg PO ACBREAKFAST 02/06/15 [History] Lisinopril 20 mg PO BID 02/06/15 [History] Spironolactone [Aldactone] 12.5 mg PO DAILY 02/06/15 [History] Albuterol [Ventolin HFA] 1 puff INH ASDIRECTED 07/06/20 [History] Doxylamine Succinate [Unisom] 25 mg PO BEDTIME 01/23/21 [History] allopurinoL [Zyloprim] 100 mg PO DAILY 01/23/21 [History] predniSONE [Prednisone] 60 mg PO ASDIRECTED 01/23/21 [History] Past Medical History HEENT History: Reports: Hard of Hearing, Impaired Vision Other HEENT History: hypothyroidism Cardiovascular History: Reports: High Cholesterol, Hypertension, Other (See Below) Other Cardiovascular History: cardiomegaly Respiratory History: Reports: Asthma, COPD, Other (See Below) Other Respiratory History: pulmonary embolism Gastrointestinal History: Reports: Other (See Below) Other Gastrointestinal History: small intestine puncture after gall bladder removal rectal fissure. Musculoskeletal History: Reports: Back Pain, Chronic, Other (See Below) Other Musculoskeletal History: vincenzomyranda dozier diasesa. Endocrine/Metabolic History: Reports: Hypothyroidism Oncologic (Cancer) History: Reports: Prostate Other Dermatologic History: lymes disease, valley fever - Infectious Disease History Infectious Disease History: Reports: Chicken Pox, Measles, Mumps, Novel Coronavirus, Shingles - Past Surgical History GI Surgical History: Reports: Cholecystectomy, Other (See Below) Male Surgical History: Reports: Renal Calculus, Other (See Below) Other Male Surgeries/Procedures: prostate seeds Musculoskeletal Surgical History: Reports: Arthroscopic Knee, Shoulder Surgery Social & Family History - Family History Family Medical History: No Pertinent Family History - Tobacco Use Tobacco Use Status *Q: Former Tobacco User Years of Tobacco use: 15 Packs/Tins Daily: 0.5 Used Tobacco, but Quit: Yes Month/Year Tobacco Last Used: Quit 47 years ago Second Hand Smoke Exposure: No - Caffeine Use Caffeine Use: Reports: Coffee, Soda - Alcohol Use Days Per Week of Alcohol Use: 3 Number of Drinks Per Day: 2 Total Drinks Per Week: 6 - Recreational Drug Use Recreational Drug Use: No Review of Systems - Review of Systems Review Of Systems: See Below Constitutional: Denies: Fever Respiratory: Reports: Other (Patient had a recent bronchitis treated with Zithromax, finished antibiotic 2 days ago). Denies: Shortness of Breath Cardiovascular: Denies: Chest Pain Musculoskeletal: Reports: Other (Left index finger pain) Skin: Reports: Erythema Neurological: Denies: Paresthesia ED EXAM, GENERAL - Physical Exam Exam: See Below Exam Limited By: No Limitations General Appearance: Alert, Anxious Head: Atraumatic Respiratory/Chest: No Respiratory Distress Cardiovascular: Regular Rate, Rhythm Extremities: Other (Exam is otherwise limited the left hand. Patient has a 1.5 x 2.5 cm raised tight and tender fluctuant subcutaneous abscess that is formed over the DIP joint dorsally. The nail and paronychia do not appear to be involved.) Neurological: Alert, Oriented Psychiatric: Anxious Course - Vital Signs Last Recorded V/S: Last Vital Signs Temp 97.8 F 01/23/21 10:51 Pulse 69 01/23/21 10:51 Resp 16 01/23/21 10:51 BP 130/51 L 01/23/21 10:51 Pulse Ox 95 01/23/21 10:51 - Orders/Labs/Meds Orders: Active Orders 24 hr Category Date Time Status CULTURE WOUND + SMEAR [RM] Stat Lab 01/23/21 11:13 Results Meds: Medications Discontinued Medications Generic Name Dose Route Start Last Admin Trade Name Clem PRN Reason Stop Dose Admin Bacitracin 1 dose 01/23/21 11:00 01/23/21 11:52 Bacitracin Oint 1 Gm U/D Packet TOP 01/23/21 11:01 1 dose ONETIME ONE Administration Lidocaine HCl 5 ml 01/23/21 11:00 01/23/21 11:52 Lidocaine 1% 5 Ml Sdv INJECT 01/23/21 11:01 5 ml ONETIME ONE Administration - Re-Assessments/Exams Free Text/Narrative Re-Assessment/Exam: 01/23/21 11:39 The finger was sterilized with Betadine, infiltrated with 1% lidocaine and a #11 scalpel was used to make a small incision over the ulnar aspect of the abscess. With direct pressure most of the purulent material was expelled, a culture was obtained. Initial microbiology revealed rare gram-positive cocci, so patient was placed on clindamycin 300 mg 3 times a day for the next 5 days pending culture results. 01/23/21 13:16 Soak the finger in warm water for an additional 20 minutes, topical bacitracin was applied with a Band-Aid. Departure - Departure Time of Disposition: 12:04 Disposition: Home, Self-Care 01 Clinical Impression: Abscess of finger of left hand - Discharge Information Instructions: Skin Abscess, [id number] Referrals: PCP,None [Primary Care Provider] - Forms: ED Department Discharge Care Plan Goals: Use your pain medication as needed, take antibiotic as prescribed for the next 5 days and we will be in touch with you with culture results if changes are needed. Recheck in 2 to 3 days if not improving satisfactorily. Keep your finger clean while healing. Sepsis Event Note (ED) - Evaluation Sepsis Screening Result: No Definite Risk - Focused Exam Vital Signs: Vital Signs Temp Pulse Resp BP Pulse Ox 01/23/21 10:51 97.8 F 69 16 130/51 L 95 - My Orders Last 24 Hours: My Active Orders 01/23/21 11:13 CULTURE WOUND + SMEAR [RM] Stat - Assessment/Plan Last 24 Hours: My Active Orders 01/23/21 11:13 CULTURE WOUND + SMEAR [RM] Stat
== END 2021-01-23 12:03 | disposition home or self-care (01) ==
LOC: JP.ED 10:10
DX: L02.512 Cutaneous abscess of left hand (principal); I10 Essential (primary) hypertension; E03.9 Hypothyroidism, unspecified; E78.00 Pure hypercholesterolemia, unspecified; Z87.891 Personal history of nicotine dependence; Z91.048 Other nonmedicinal substance allergy status
CPT/HCPCS: 26010; 87070; 87205; 99283-25

== ENCOUNTER 2021-06-14 16:19 | Emergency (ER) | payer MEDICARE, OTHER ==
[2021-06-14 16:58] VITALS: BP 114/51; PULSE 84
[2021-06-14] MEDS ORDERED: Silver Nitrate Applicator Each TOP ONE (18:16)
--- NOTE | 2021-06-14 19:05 | EDM.PDOC ---
ED HPI GENERAL MEDICAL PROBLEM - General Chief Complaint: Wound Recheck Stated Complaint: wound on left leg Time Seen by Provider: 06/14/21 18:43 Source of Information: Reports: Patient, Family (spouse at bedside) History Limitations: Reports: No Limitations - History of Present Illness INITIAL COMMENTS - FREE TEXT/NARRATIVE: Patient presents emergency room secondary to concern about wound on his left lower extremity. He does have chronic wound issues with his lower extremities bilaterally secondary to venous insufficiency. He is being cared for by Dr. Cerda, Gen Surg for chronic wound care. He has a f/u appt tomorrow for wound recheck/continued wound care management. States he bilateral LE venous dopplers completed yesterday. Patient state that today he was up more than he should have been, not keeping legs elevated. He started having bleeding/oozing from left LE--lateral wound and could not get it to stop so he came to the ER for further evaluation. PMH/Meds/Allergies--reviewed in EMR per patient request; he denies chronic anticoagulation Tob--former EtOH--2-3 x week Drugs--denies Patient has had COVID in Jun 2020, has not received his COVID immunization Onset: Today - Related Data Allergies Allergy/AdvReac Type Severity Reaction Status Date / Time enteric coted med Allergy Swelling Uncoded 06/14/21 17:00 Home Meds: Home Meds Carvedilol [Coreg] 25 mg PO DAILY 02/06/15 [History] Levothyroxine 75 mcg PO ACBREAKFAST 02/06/15 [History] Lisinopril 20 mg PO DAILY 02/06/15 [History] Spironolactone [Aldactone] 12.5 mg PO DAILY 02/06/15 [History] Doxylamine Succinate [Unisom] 25 mg PO BEDTIME 01/23/21 [History] allopurinoL [Zyloprim] 300 mg PO DAILY 01/23/21 [History] predniSONE [Prednisone] 60 mg PO ASDIRECTED PRN 01/23/21 [History] Past Medical History HEENT History: Reports: Hard of Hearing, Impaired Vision Other HEENT History: hypothyroidism Cardiovascular History: Reports: Blood Clots/VTE/DVT, High Cholesterol, Hypertension, Other (See Below) Other Cardiovascular History: cardiomegaly Respiratory History: Reports: Asthma, COPD, Other (See Below) Other Respiratory History: pulmonary embolism Gastrointestinal History: Reports: Other (See Below) Other Gastrointestinal History: small intestine puncture after gall bladder removal rectal fissure. Musculoskeletal History: Reports: Back Pain, Chronic, Other (See Below) Other Musculoskeletal History: vincenzo schlatters diasesa. Endocrine/Metabolic History: Reports: Hypothyroidism Oncologic (Cancer) History: Reports: Prostate Other Dermatologic History: lymes disease, valley fever - Infectious Disease History Infectious Disease History: Reports: Chicken Pox, Measles, Mumps, Novel Coronavirus, Shingles - Past Surgical History GI Surgical History: Reports: Cholecystectomy, Other (See Below) Male Surgical History: Reports: Renal Calculus, Other (See Below) Other Male Surgeries/Procedures: prostate seeds Musculoskeletal Surgical History: Reports: Arthroscopic Knee, Shoulder Surgery Social & Family History - Family History Family Medical History: No Pertinent Family History - Tobacco Use Tobacco Use Status *Q: Former Tobacco User Used Tobacco, but Quit: Yes Month/Year Tobacco Last Used: long ago - Caffeine Use Caffeine Use: Reports: Coffee - Recreational Drug Use Recreational Drug Use: No ED ROS GENERAL - Review of Systems Review Of Systems: Comprehensive ROS is negative, except as noted in HPI. Skin: Reports: Wound ED EXAM, SKIN/RASH Exam: See Below Exam Limited By: No Limitations General Appearance: Alert, WD/WN, No Apparent Distress, Obese Eye Exam: Bilateral Eye: EOMI, Normal Inspection, PERRL Ears: Normal External Exam, Hearing Grossly Normal Throat/Mouth: Normal Voice, No Airway Compromise Head: Atraumatic, Normocephalic Neck: Normal Inspection, Supple, Full Range of Motion Respiratory/Chest: No Respiratory Distress, Lungs Clear, Normal Breath Sounds Cardiovascular: Regular Rate, Rhythm, No Murmur. No: No Edema (2+ pitting edema to LE bilaterally) GI/Abdominal: Normal Bowel Sounds, Soft, Other (morbidly obese) (Male) Exam: Deferred Rectal (Males) Exam: Deferred Extremities: Pedal Edema (2+ pitting edema to LE bilaterally), Slow Capillary Refill, Leg Pain (tender to exam/wound care-dressing change), Other (wounds x 2 to Left LE--wound of concern regarding bleeding is circular with yellowish film base of minimal depth, no active bleeding on removal of dressing, 3cm in size) Neurological: Alert, Oriented, Normal Cognition, Normal Gait, No Motor/Sensory Deficits Psychiatric: Normal Affect, Normal Mood Skin: Warm, Other (2+ pitting edema to LE bilaterally, color change c/w chronic venous stasis/insufficiency) Course - Vital Signs Text/Narrative:: wound was undressed, no active bleeding noted. flushed with NS. pat dry then silver nitrate cautery to wound bed/edges. redressed with vasoline gauze/telfa/gauze and wrapped with brayan wrap. d/w patient home care should dressing become soiled tonight. has appt with surgeon tomorrow--emphasized importance of keeping this appointment for ongoing chronic wound care management. verbalized understanding/agreement with plan of care. ready for d/c Last Recorded V/S: Last Vital Signs Temp 97.6 F 06/14/21 16:59 Pulse 84 06/14/21 16:59 Resp 16 06/14/21 16:59 BP 114/51 L 06/14/21 16:59 Pulse Ox 98 06/14/21 16:59 - Orders/Labs/Meds Meds: Medications Discontinued Medications Generic Name Dose Route Start Last Admin Trade Name Clem PRN Reason Stop Dose Admin Silver Nitrate 1 each 06/14/21 18:16 06/14/21 18:29 Silver Nitrate Applicator Each TOP 06/14/21 18:17 1 each ONETIME ONE Administration Departure - Departure Time of Disposition: 19:26 Disposition: Home, Self-Care 01 Condition: Good Clinical Impression: Visit for wound check - Discharge Information *PRESCRIPTION DRUG MONITORING PROGRAM REVIEWED*: Not Applicable *COPY OF PRESCRIPTION DRUG MONITORING REPORT IN PATIENT NAKUL: Not Applicable Referrals: PCP,None [Primary Care Provider] - Additional Instructions: Patient did not want to wait for paperwork at time of d/c Sepsis Event Note (ED) - Focused Exam Vital Signs: Vital Signs Temp Pulse Resp BP Pulse Ox 06/14/21 16:59 97.6 F 84 16 114/51 L 98 06/14/21 16:54 97.6 F 84 16 114/51 L 98
== END 2021-06-14 19:19 | disposition home or self-care (01) ==
LOC: JP.ED 16:19
DX: Z48.01 Encounter for change or removal of surgical wound dressing (principal); E78.00 Pure hypercholesterolemia, unspecified; I10 Essential (primary) hypertension; J44.9 Chronic obstructive pulmonary disease, unspecified; E03.9 Hypothyroidism, unspecified; Z91.048 Other nonmedicinal substance allergy status; Z79.899 Other long term (current) drug therapy; Z87.891 Personal history of nicotine dependence; Z86.16 Personal history of COVID-19
CPT/HCPCS: 99282

== ENCOUNTER 2024-02-15 10:19 | Emergency (ER) | payer MEDICARE, OTHER ==
[2024-02-15 10:35] VITALS: BP 108/56; PULSE 75
== END 2024-02-15 11:56 | disposition home or self-care (01) ==
LOC: JP.ED 10:19
DX: S22.42XA Multiple fractures of ribs, left side, initial encounter for closed fracture (principal); I10 Essential (primary) hypertension; J45.909 Unspecified asthma, uncomplicated; E03.9 Hypothyroidism, unspecified; Z86.16 Personal history of COVID-19; Z90.49 Acquired absence of other specified parts of digestive tract; Z87.891 Personal history of nicotine dependence; Z79.899 Other long term (current) drug therapy; Z79.891 Long term (current) use of opiate analgesic; Z91.048 Other nonmedicinal substance allergy status; W01.0XXA Fall on same level from slipping, tripping and stumbling without subsequent striking against object, initial encounter
CPT/HCPCS: 99283